=== PATIENT | female | born 1955 | race Caucasian/White ===

== ENCOUNTER 2021-11-14 14:56 | Emergency (ER) | payer OTHER, SELFPAY ==
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
[2021-11-14 15:10] VITALS: BP 161/62; BP 161/97; PULSE 62; PULSE 66; RESP 18; TEMP 37; O2SAT 98; O2SAT 99; BMI 37.9
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
[2021-11-14 17:25] VITALS: BP 139/59; PULSE 61; O2SAT 99
== END 2021-11-14 19:17 | disposition home or self-care (01) ==
PROVIDERS: Emergency Provider Emergency Medicine; PCP Internal Medicine
DX: S16.1XXA Strain of muscle, fascia and tendon at neck level, initial encounter (principal); G44.309 Post-traumatic headache, unspecified, not intractable; M54.2 Cervicalgia; V43.52XA Car driver injured in collision with other type car in traffic accident, initial encounter; Y93.9 Activity, unspecified; Y92.410 Unspecified street and highway as the place of occurrence of the external cause; Y99.9 Unspecified external cause status; Z79.899 Other long term (current) drug therapy
CPT/HCPCS: 70450; 72125; 99284

== ENCOUNTER 2025-01-22 10:55 | Outpatient (REF) | payer MEDICARE, SELFPAY ==
--- NOTE | ~2025-01-22 | XR_ITS ---
EXAMINATION: Lumbar spine 4 views. CLINICAL INDICATION: Radiculopathy lumbar region. COMPARISON: Chest x-ray 07/11/2016: FINDINGS: There is normal lumbar lordosis. There is grade 1 anterolisthesis L4-L5. Rest of the vertebral alignment is normal. On flexion and extension views there is no significant change in the anterolisthesis L4 over L5. There is moderate ventral spondylosis throughout lumbar spine. The vertebral heights are maintained normal. No fracture, lytic lytic or sclerotic process seen. SI joints are symmetrical and normal. XR/XR lumbar spine 4V min IMPRESSION: Grade 1 anterolisthesis L4 over L5 with mild degenerative disc changes L4-5 disc level. There is moderate ventral spondylosis throughout lumbar spine. No visible acute fracture or lytic process seen. Electronically signed by: Familia Copeland MD 01/26/2025 07:30 AM EDT
--- OUTSIDE RECORDS SUMMARY | 2025-01-22 12:28 | XMS_ITS | Clinical Summary ---
Author Organization [address] Address [address] [place] [phone] Phone Care Team Providers Care Concrete Buster Operator Name Role Phone Cristina Martinez MD Primary Care Provider [phone] Allergies Active Allergy Reactions Criticality Noted Date [...] 019 Non-seasonal allergic rhinitis 07/30/2019 Morbid obesity ([facility] V24, [facility] V28) 2015 Plantar fasciitis 02/13/2012 Atopic dermatitis 11/30/2005 Migraine without aura 11/30/2005 Overview (11/08/2024): Hypertension 11/30/2005 Neutropenia ([facility] V24) 11/30/2005 Overview (07/27/2024): mild chronic Resolved Problems Problem Noted Date Diagnosed Date Resolved Date Lumbosacral spondylosis without myelopathy 02/17/2007 11/12/2024 Encounters Date Type Department Care Team Description 11/26/2024 5:30 PM EST - 11/26/2024 11:59 PM EST Hospital Encounter Radiology Department - [address] [phone] Spondylosis, unspecified Discharge Disposition: Home or Self Care 11/26/2024 2:00 PM EST - 11/26/2024 11:59 PM EST Hospital Encounter XRAY - [address] [phone] Radiculopathy, lumbar region; Spondylosis, unspecified Discharge Disposition: Home or Self Care 11/12/2024 9:45 AM EST Office Visit Adult Medicine South [address] [phone] Cristina Martinez MD Primary hypertension (Primary Dx); Subclinical hypothyroidism; Vitamin D deficiency; Lumbar spondylosis; Mild intermittent asthma without complication 11/04/2024 10:00 AM EST Office Visit Orthopedic Surgery - [place] [address] [phone] Mary Gates NP Primary osteoarthritis of left knee (Primary Dx); Radicular pain of left lower extremity 10/31/2024 11:51 PM EST - 11/01/2024 2:40 AM EST Emergency [facility] Emergency [address] [place] [phone] Left leg pain (Primary Dx) Discharge Disposition: Home or Self Care 10/30/2024 10:30 AM EST Office Visit Orthopedics [address] [phone] Flaco Francis PA Primary osteoarthritis of left [...] spondylosis with out myelopathy 02/17/2007 Morbid obesity ([facility] V24, [facility] V28) 12/05/2015 Chronic cough 07/30/2019 Osteopenia 02/02/202202/18 [...] 1:50 PM EDT Appointment Radiology Department - [address] [phone] 05/12/2025 9:45 AM EDT Office Visit Adult Medicine [address] [phone] Julianne Alexandra PA [address] [place] [phone] Health Maintenance Due Date Last Done Comments [...] 11/01/2024 2:10 AM EST Left leg pain NV ARTHROCENTESIS/ASPIRA TION/INJECTION MAJOR JOINT/BURSA W/O U/S GUIDANCE [...] Signed Date: 11/27/2024 16:06 ET Workstation ID: [id number] Transcribed By: Self Edit Transcribed Date: 11/27/2024 [...] is stenosis of the lateral recesses and [id number] foramina with possible compression of the L4 [...] Signed Date: 11/27/2024 16:06 ET Workstation ID: [id number] Transcribed By: Self Edit Transcribed Date: 11/27/2024 14:45 ET us Chidi SHANNON IMG MRI PROCEDURES Final Resul t * XR Lumbar Spine 4+ Views (11/26/2024 2:15 PM EST) Anatomical Region Laterality Modality Spine, L-spine Radiographic Elana ging 11/26/2024 10:5 4 PM EST Impressions 11/26/2024 10:58 PM EST Progressive degenerative changes. POS - [id number] -------- FINAL REPORT -------- Dictated By: Magaly Boles Dictated Date: 11/26/2024 22:54 ET Assigned Physician: Magaly Boles Reviewed and Electronically Signed By: Magaly Boles Signed Date: 11/26/2024 22:58 ET Workstation ID: [id number] Transcribed By: Self Edit Transcribed Date: 11/26/2024 [...] L5. IMPRESSION: Progressive degenerative changes. POS - [id number] -------- FINAL REPORT -------- Dictated By: Magaly Boles Dictated Date: 11/26/2024 22:54 ET Assigned Physician: Magaly Boles Reviewed and Electronically Signed By: Magaly Boles Signed Date: 11/26/2024 22:58 ET Workstation ID: [id number] Transcribed By: Self Edit Transcribed Date: 11/26/2024 22:54 ET Chidi SHANNON IMG XR PROCEDURES Final Result * Lipid panel with reflex to direct LDL (11/09/2024 10:45 AM EST) Cholesterol 154 0 - 200 mg/dL LAB CHEMISTRY METHOD 11/09/2024 3:59 PM EST [facility] Triglycerides 90 0 - 150 mg/dL LAB CHEMISTRY METHOD 11/09/2024 3:59 PM EST [facility] HDL 58 >=40 mg/dL LAB CHEMISTRY METHOD 11/09/2024 3:59 PM EST [facility] LDL Calculated 78 0 - 100 mg/dL LAB CHEMISTRY METHOD 11/09/2024 3:59 PM [facility] VLDL Cholesterol Luis Armando 18 mg/dL LAB CHEMISTRY METHOD 11/09/2024 3:59 PM [facility] Non HDL Chol. (LDL+VLDL) 96 <145 mg/dL LAB CHEMISTRY METHOD 11/09/2024 3:59 PM [facility] Chol/HDL Ratio 2.7 0.0 - 4.4 LAB CHEMISTRY METHOD 11/09/2024 3:59 PM [facility] Blood Venous blood specimen / Unknown Venipuncture / Unknown 11/09/2024 10:45 AM EST 11/09/2024 10:45 AM EST us Julianne SHANNON LAB BLOOD ORDERABLES Final Re sult [facility] [address] [place] [address], * CBC auto differential (11/09/2024 10:45 AM EST) WBC 5.9 4.8 - 10.8 K/[facility] LAB HEMETOLOGY METHOD 11/09/2024 12:07 PM [facility] RBC 4.30 3.80 - 4.80 M/[facility] LAB HEMETOLOGY METHOD 11/09/2024 12:07 PM [facility] Hemoglobin 13.0 11.5 - 16.0 g/dL LAB HEMETOLOGY METHOD 11/09/2024 12:07 PM [facility] Hematocrit 39.7 35.0 - 47.0 % LAB HEMETOLOGY METHOD 11/09/2024 12:07 PM [facility] MCV 91.9 79.0 - 98.0 FL LAB HEMETOLOGY METHOD 11/09/2024 12:07 PM [facility] MCH 30.1 27.0 - 32.0 pcg LAB HEMETOLOGY METHOD 11/09/2024 12:07 PM [facility] MCHC 32.7 32.0 - 37.0 g/dL LAB HEMETOLOGY METHOD 11/09/2024 12:07 PM [facility] RDW 13.2 11.0 - 15.0 % LAB HEMETOLOGY METHOD 11/09/2024 12:07 PM [facility] Platelets 262 130 - 400 K/mcL LAB HEMETOLOGY METHOD 11/09/2024 12:07 PM [facility] MPV 9.7 7.0 - 11.0 FL LAB HEMETOLOGY METHOD 11/09/2024 12:07 PM [facility] NRBC 0.0 <1.0 % LAB HEMETOLOGY METHOD 11/09/2024 12:07 PM [facility] NRBC Absolute 0.00 <0.10 K/mcL LAB HEMETOLOGY METHOD 11/09/2024 12:07 PM [facility] Neutrophils Relative 38.3 % LAB HEMETOLOGY METHOD 11/09/2024 12:07 PM [facility] Lymphocytes Relative 44.0 % LAB HEMETOLOGY METHOD 11/09/2024 12:07 PM [facility] Monocytes Relative 10.7 % LAB HEMETOLOGY METHOD 11/09/2024 12:07 PM [facility] Eosinophils Relative 5.9 % LAB HEMETOLOGY METHOD 11/09/2024 12:07 PM [facility] Basophils Relative 0.8 % LAB HEMETOLOGY METHOD 11/09/2024 12:07 PM [facility] Immature Granulocytes Relative 0.3 % LAB HEMETOLOGY METHOD 11/09/2024 12:07 PM [facility] Neutrophils Absolute 2.25 1.50 - 7.00 K/mcL LAB HEMETOLOGY METHOD 11/09/2024 12:07 PM EST [facility] Lymphocytes Absolute 2.59 1.00 - 5.00 K/[facility] LAB HEMETOLOGY METHOD 11/09/2024 12:07 PM EST [facility] Monocytes Absolute 0.63 0.20 - 1.00 K/[facility] LAB HEMETOLOGY METHOD 11/09/2024 12:07 PM EST [facility] Eosinophils Absolute 0.35 0.00 - 0.50 K/[facility] LAB HEMETOLOGY METHOD 11/09/2024 12:07 PM EST [facility] Basophils Absolute 0.05 0.00 - 0.20 K/[facility] LAB HEMETOLOGY METHOD 11/09/2024 12:07 PM [facility] Immature Granulocytes Absolute 0.02 0.00 - 0.03 K/[facility] LAB HEMETOLOGY METHOD 11/09/2024 12:07 PM [facility] Blood Venous blood specimen / Unknown Venipuncture / Unknown 11/09/2024 10:45 AM EST 11/09/2024 10:45 AM EST us Julianne SHANNON LAB BLOOD ORDERABLES Final Re sult [facility] [address] [place] [address], * Vitamin D 25 hydroxy (11/09/2024 10:45 AM EST) Vit D, 25-Hydroxy 40.9 30.0 - 80.0 ng/mL LAB CHEMISTRY METHOD 11/09/2024 4:03 PM EST [facility] Blood Venous blood specimen / Unknown Venipuncture / Unknown 11/09/2024 10:45 AM EST 11/09/2024 10:45 AM EST us Julianne SHANNON LAB BLOOD ORDERABLES Final Re sult [facility] [address] [place] [address], [place] [phone] * Thyroid stimulating hormone (11/09/2024 10:45 AM EST) [facility] TSH 2.72 0.40 - 4.00 mcIU/mL LAB CHEMISTRY METHOD 11/09/2024 4:04 PM [facility] Blood Venous blood specimen / Unknown Venipuncture / Unknown 11/09/2024 10:45 AM EST 11/09/2024 10:45 AM EST Julianne SHANNON LAB BLOOD ORDERABLES Final Re sult Performing Organization Address [facility]/State/ZIP Co de Phone Number [facility] [address] [place] [address], [place] [phone] * Comprehensive metabolic panel (11/09/2024 10:45 AM EST) [facility] Sodium 140 133 - 145 mmol/L LAB CHEMISTRY METHOD 11/09/2024 3:59 PM [facility] Potassium 4.1 3.5 - 5.5 mmol/L LAB CHEMISTRY METHOD 11/09/2024 3:59 PM [facility] Chloride 105 96 - 110 mmol/L LAB CHEMISTRY METHOD 11/09/2024 3:59 PM [facility] CO2 28 21 - 32 mmol/L LAB CHEMISTRY METHOD 11/09/2024 3:59 PM [facility] Anion Gap 7 3 - 11 LAB CHEMISTRY METHOD 11/09/2024 3:59 PM [facility] Glucose 95 70 - 100 mg/dL LAB CHEMISTRY METHOD 11/09/2024 3:59 PM [facility] BUN 16 5 - 25 mg/dL LAB CHEMISTRY METHOD 11/09/2024 3:59 PM [facility] Creatinine 0.88 0.50 - 1.10 mg/dL LAB CHEMISTRY METHOD 11/09/2024 3:59 PM [facility] eGFR 72 >=60 mL/min/1. 73m2 LAB CHEMISTRY METHOD 11/09/2024 3:59 PM [facility] Comment:Calculation based on the??Chronic Kidney Disease Epidemiology Collaboration (CKD-EPI) equation refit??without adjustment for race. BUN/Creatinine Ratio 18.2 LAB CHEMISTRY METHOD 11/09/2024 3:59 PM [facility] Calcium 9.6 8.5 - 10.5 mg/dL LAB CHEMISTRY METHOD 11/09/2024 3:59 PM [facility] AST (SGOT) 13 10 - 42 unit/L LAB CHEMISTRY METHOD 11/09/2024 3:59 PM [facility] ALT (SGPT) 22 10 - 60 unit/L LAB CHEMISTRY METHOD 11/09/2024 3:59 PM [facility] Alkaline Phosphatase 85 42 - 121 unit/L LAB CHEMISTRY METHOD 11/09/2024 3:59 PM [facility] Total Protein 7.0 6.0 - 8.0 g/dL LAB CHEMISTRY METHOD 11/09/2024 3:59 PM [facility] Albumin 3.8 3.2 - 5.0 g/dL LAB CHEMISTRY METHOD 11/09/2024 3:59 PM [facility] Total Bilirubin 0.6 0.0 - 1.4 mg/dL LAB CHEMISTRY METHOD 11/09/2024 3:59 PM [facility] Blood Venous blood specimen / Unknown Venipuncture / Unknown 11/09/2024 10:45 AM EST 11/09/2024 10:45 AM EST us Julianne SHANNON LAB BLOOD ORDERABLES Final Re sult [facility] [address] [place] [address], * Vascular US Duplex Lower Extremity Venous [...] Signed Date: 11/01/2024 08:42 ET Workstation ID: [id number] Transcribed By: Self Edit Transcribed Date: 11/01/2024 [...] Signed Date: 11/01/2024 08:42 ET Workstation ID: [id number] Transcribed By: Self Edit Transcribed Date: 11/01/2024 08:41 ET us Luke SHANNON CV VASCULAR PROCEDURES Fi nal Result * NV ARTHROCENTESIS/ASPIRATION/INJECTION MAJOR JOINT/BURSA W/O U/S GUIDANCE (10/30/2024 [...] Signed Date: 08/24/2024 18:24 ET Workstation ID: [id number] Transcribed By: Self Edit Transcribed Date: 08/24/2024 18:21 ET Narrative 08/24/2024 6:24 PM EST STUDY: ??DUAL ENERGY X-RAY ABSORPTIOMETRY / DXA REASON FOR EXAM: ?? Female, 69 years old ??Osteopenia, unspecified location TECHNIQUE: ?? Bone Mineral Density (BMD) measurements of the lumbar spine and left hip were obtained using [employer] Discovery W (S/N [id number]). ?? COMPARISON: February 02, 2022 ?? FINDINGS: [...] lumbar spineand left hip were obtained using [employer] Discovery W (S/N [id number]). COMPARISON: February 02, 2022 FINDINGS: L1-L4 BMD: [...] Signed Date: 08/24/2024 18:24 ET Workstation ID: [id number] Transcribed By: Self Edit Transcribed Date: 08/24/2024 18:21 ET us Cristina Martinez MD IMG DXA PROCEDURES Final Result * Falls Risk Assessment (03/05/2024) Falls Risk Assessment Abstracted Result [facility] Historical Provider HEALTH MAINTENANCE Final Result * Depression Screening (03/05/2024) HM Depression Screening Abstracted Result [facility] Historical Provider HEALTH MAINTENANCE Final Result * [...] Breast cancer risk category Low (<15%) Result [facility] Cristina Martinez MD IMG XR PROCEDURES Final Result * Colonoscopy (01/14/2018) Pathologist [facility] Colonoscopy No Interpretation , Abstracted Anatomical Region Laterality Modality Other [facility] Provider HEALTH MAINTENANCE Final Result * Cervical Cancer Screening: HPV (11/20/2017) [facility] Cervical Cancer Screening: HPV Negative, Abstracted [facility] Provider HEALTH MAINTENANCE Final Result * Hepatitis C Screening (04/01/2013) Pathologist [facility] Hepatitis C Screening Abstracted [facility] Provider HEALTH MAINTENANCE Final Result from Last 3 Months or Most Recently Relevant to Health Maintenance Insurance MEDICARE HEALTH SAFETY NET [place]ICAID - [place] Advance Directives Documents on File Type Date Recorded Patient Trimmer Press Clippings Expl anation Health Care Decision (hx) 01/14/2014 [...] (hx) 12/29/2013 AD WOO DIRECTIVE Care Teams Concrete Buster Operator Relationship Specialty Start Date End Date Cristina Martinez MD [address] [place] [address] PCP - General 09/30/1991
--- OUTSIDE RECORDS SUMMARY | 2025-01-22 12:28 | XMS_ITS | Encounter Summary ---
Author Organization [facility] Address [address] [place] [address] Care Team Providers Care Pulley Maintainer Name Role Phone Cristina Martinez MD Primary Care Provider Encounter Details Date Type Department Care Team (Late Contact Info) Description 06/30/2024 12:00 PM EDT Hospital Encounter TH HISTORIC ENCOUNTERS EASTERN CONVERSION ONLY Julianne Alexandra PA [address] [place] [address] Social History Tobacco Use Types Packs/Day Years [...] 02/16/2025 1:50 PM EDT Appointment Radiology Department [address] [phone] 05/12/2025 9:45 AM EDT Office Visit Adult Medicine [address] [phone] Julianne Alexandra PA [address] [place] [address] documented as of this encounter Visit Diagnoses Not on filedocumented in this encounter Care Teams Pulley Maintainer Relationship Specialty Start Date End Date Cristina Martinez MD [address] [place] [address] PCP - General 09/30/1991 documented as of this encounter
== END 2025-01-22 10:56 | disposition home or self-care (01) ==
LOC: HO.HOSX 10:55
PROVIDERS: PCP Internal Medicine; Referring Provider Physician Assistant; Visit Provider Physician Assistant
DX: M54.16 Radiculopathy, lumbar region (principal); G89.29 Other chronic pain
CPT/HCPCS: 72110; 99202

== ENCOUNTER 2025-01-22 10:55 | Outpatient (AMB) | payer MEDICARE, SELFPAY ==
--- NOTE | 2025-01-22 11:00 | A.SPINEOV_ITS ---
Vital Signs 01/22/25 11:04 Height 5 ft 4 in Weight 220 lb BMI 37.8 Intake Visit Reasons: LBP Intake Note: Ms. Beard is here today c/o Low back pain. 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 She is a very nice 69-year-old female who has had on and off back issues including back pain most of her life, recently worse after a fall a couple of years ago, who began experiencing intense left L5 radiculopathy radiating down from the left side of her low back into her posterolateral thigh, calf into the top of her foot last year. The symptoms progressed to where they were almost unmanageable. She was using a shopping cart to get around. Getting in and out of bed was very uncomfortable. She was in quite a bit of pain and underwent physical therapy and unfortunately that did not help. She did try some chiropractic treatments in the last year as well but that only seemed to make things more aggravated. She takes Aleve to help with the pain. She underwent a cortisone injection in your office at L5-S1 in November and that gave her significant relief. The pain is not completely gone but for the most part it has made it quite a bit better. She is following up with us today with MRI done at [place] showing lumbar spondylolisthesis at L4-5 with lateral recess stenosis. PMH: She is reasonably healthy, history of hypertension, asthma and hypothyroidism. No history of cardiac disease, diabetes, strokes, pulmonary, liver, kidneys, cancer, blood clots, major abdominal surgery etc. Social hx: She does not smoke, drink use any recreational drugs Medications: Metoprolol, Allergies: High dose naproxen gave her gastritis, prednisone gave her elevated blood pressure, also allergic to sulfa gives her nausea Physical exam: Strength, gait, reflexes are all normal Imaging review: Lumbar MRI done at [place] shows a degenerative subtle anterior listhesis at L4-5 with some mild crowding of the lateral recess at this level Impression: 69-year-old female presents with chronic low back pain on and off through the years, last year developed a severe left L5 radiculopathy which responded beautifully to an injection done at L5-S1 epidural. She currently has had quite a bit of pain relief from the injection so I am going to let this sit for awhile and see if she gets enough relief that she does not need to undergo surgery. She does have what looks like a degenerative listhesis at L4-5 and some mild lateral recess narrowing at this level. I will send her for flexion- extension x-rays to rule out occult instability. Unless that shows something very concerning, I think Dr. Lopez would consider a left L4-5 decompression if the pain comes back given the localized response to the injection and the subjective description of the symptoms in the setting of the MRI. Since she is doing so well right now I will just see her back in 6 weeks and re-evaluate. Thank you for allowing us to care for your patient. The total time spent with this visit with this patient was 45 minutes reviewing history, physical exam, lumbar imaging review, and implementation of treatment plan or further diagnostic testing Sundar Lopez MD,PhD [facility] Orders: Orders XR lumbar spine 4V min Today M54.16 - Radiculopathy, lumbar region Coding Level of Care Code New Pt Level 4 (72669) Diagnoses Lumbar radiculopathy M54.16
[2025-01-22 11:04] VITALS: BMI 37.8
--- OUTSIDE RECORDS SUMMARY | 2025-01-22 11:41 | XMS_ITS | Clinical Summary ---
Author Organization [address] Address [address] [place] [phone] Phone Care Team Providers Care Plan Nurse Name Role Phone Cristina Martinez MD Primary Care Provider [phone] Allergies Active Allergy Reactions Criticality Noted Date Comments Prednisone 05/08/2024 Sulfa (Sulfonamide Antibiotics) 06/25/2011 Chills, lightheaded Medications albuterol HFA (Ventolin HFA) 90 mcg/actuation inhaler Inhale 2 puffs by mouth every 4 (four) hours if needed for wheezing or shortness of breath. 1 each 4 Active cholecalciferol (VITAMIN D-3) 50 mcg (2,000 unit) capsule Take 1 capsule (2,000 Units total) by mouth 1 (one) time each day. 90 capsule 1 4 Active enalapril (VASOTEC) 10 mg tablet Take 1 tablet (10 mg total) by mouth at bedtime. 90 tablet 1 4 Active fluticasone HFA (FLOVENT HFA) 110 mcg/actuation inhaler Inhale 1 puff by mouth 2 (two) times a day. Rinse mouth with water after use 3 each 1 4 Active hydroCHLOROthia zide (HYDRODIURIL) 25 mg tablet Take 1 tablet (25 mg total) by mouth at bedtime. 90 tablet 1 4 Active loratadine (CLARITIN) 10 mg tablet Take 1 tablet (10 mg total) by mouth 1 (one) time each day. 90 tablet 1 4 Active metoprolol succinate (TOPROL-XL) 25 mg 24 hr tablet Take 1 tablet (25 mg total) by mouth 1 (one) time each day. Do not crush or chew. 90 tablet 1 4 Active diclofenac (VOLTAREN) 1 % topical gel Apply 1 g topically 3 (three) times a day. 30 g 2 5 Active methocarbamoL (ROBAXIN) 750 mg tablet Take 2 tablets (1,500 mg total) by mouth 4 (four) times a day if needed for muscle spasms for up to 10 days. 40 each 5 Active Active Problems Problem Noted Date Diagnosed Date Class 2 obesity 11/03/2024 Irritant contact dermatitis due to cosmetics Vitamin D deficiency 12/07/2022 Subclinical hypothyroidism 06/08/2022 Obstructive sleep apnea 02/14/2022 Overview (11/08/2024): Patient has mild sleep apnea. I offer CPAP machine but she does not want to use it Osteopenia 02/02/2022 Overview (07/27/2024): 02/18 T score spine +1.1 hip -1.2 FRAX score 6.8% 10 year fracture risk COVID-19 09/22/2020 Mild intermittent asthma 12/23/2019 Overview (07/27/2024): Positive methacholine challenge 11/23/19 Lumbar spondylosis 08/26/2019 Varicose veins of both lower extremities 019 Non-seasonal allergic rhinitis 07/30/2019 Morbid obesity ([facility] V24, [facility] V28) 2015 Plantar fasciitis 02/13/2012 Atopic dermatitis 11/30/2005 Migraine without aura 11/30/2005 Overview (11/08/2024): Hypertension 11/30/2005 Neutropenia ([facility] V24) 11/30/2005 Overview (07/27/2024): mild chronic Resolved Problems Problem Noted Date Diagnosed Date Resolved Date Lumbosacral spondylosis without myelopathy 02/17/2007 11/12/2024 Encounters Date Type Department Care Team Description 11/26/2024 5:30 PM EST - 11/26/2024 11:59 PM EST Hospital Encounter Radiology Department - [address] [phone] Spondylosis, unspecified Discharge Disposition: Home or Self Care 11/26/2024 2:00 PM EST - 11/26/2024 11:59 PM EST Hospital Encounter XRAY - [address] [phone] Radiculopathy, lumbar region; Spondylosis, unspecified Discharge Disposition: Home or Self Care 11/12/2024 9:45 AM EST Office Visit [facility] [address] [phone] Cristina Martinez MD Primary hypertension (Primary Dx); Subclinical hypothyroidism; Vitamin D deficiency; Lumbar spondylosis; Mild intermittent asthma without complication 11/04/2024 10:00 AM EST Office Visit Orthopedic Surgery - [place] [address] [phone] Mary Gates NP Primary osteoarthritis of left knee (Primary Dx); Radicular pain of left lower extremity 10/31/2024 11:51 PM EST - 11/01/2024 2:40 AM EST Emergency [facility] Emergency [address] [place] [phone] Left leg pain (Primary Dx) Discharge Disposition: Home or Self Care 10/30/2024 10:30 AM EST Office Visit Orthopedics [address] [phone] Flaco Francis PA Primary osteoarthritis of left knee (Primary Dx) from Last 3 Months Immunizations Name Administration Dates Next Due Influenza Quadravalent, MDCK , 0.5ml, preservative free (Flucelvax) 6mo and older 06/20/2020,07/15/2019 Influenza trivalent, 0.5mL ( Fluad) 65yo and older 06/13/2023,06/08/2022,07/26/2021 Influenza trivalent, 0.5mL, preservative free (Fluarix; FluLaval; Fluzone) ages 6mo and older (Afluria) 3 years and older 06/08/2015,10/07/2013,08/31/2008,08/05,09/14/2006,09/18/2005 Moderna SARS-CoV-2 COVID-19, mRNA, LNP-S, preservative free 07/04/2022 Pfizer SARS-CoV-2 COVID-19, mRNA, LNP-S, preservative free 10/24/2021 Pneumococcal conjugate 13 va lent (Prevnar 13, PCV13) 2mo and older 12/06/2021 Pneumococcal polysaccharide 23 valent (Pneumovax 23) 2yo and older 12/07/2022 Td Tetanus diptheria (Tdvax) 7yo and older 10/16/2017,10/31/1997 Tdap Tetanus diptheria acell ular pertussis (Boostrix; Adacel) 7yo and older 09/29/2007 Surgical History Surgery Date Site/Laterality Comments TONSILLECTOMY COLONOSCOPY 02/2007 COLONOSCOPY 01/14/2018 negative SCREENING MAMMOGRAM 02/04/2024 Bilateral Medical History Medical History Date Comments Essential hypertension, benign 11/30/2005 D X:Essential hypertension, benign Migraine without aura, witho ut mention of intractable migraine without mention of status migrainosus 11/30/2005 Lumbosacral spondylosis with out myelopathy 02/17/2007 Morbid obesity ([facility] V24, [facility] V28) 12/05/2015 Chronic cough 07/30/2019 Osteopenia 02/02/202202/18 T score spi ne +1.1 hip -1.2 FRAX score 6.8% 10 year fracture risk Subclinical hypothyroidism 06/08/2022 Family History Medical History Relation Name Comments Other: pinholes in retina Brother ca ncer of the tonsil CABG Father Heart attack Maternal Grandfather Hypertension Mother pinholes in ret reginald Other: lupus Sister Breast cancer Neg Hx Prostate cancer Neg Hx Relation Name Status Comments Brother Father Maternal Grandfather Mother Sister Social History Tobacco Use Types Packs/Day Years Used Date Smoking Tobacco: Never Smokeless Tobacco: Never Tobacco Cessation:Counseling Given: Not Answered Alcohol Use Standard Drinks/Week Comments No 0 (1 standard drink = 0.6 oz pur e alcohol) Comments No Sex and Gender Information Value Date Recorded Sex Assigned at Female 11/01/2024 12:04 AM EST Legal Sex Female 1:56 PM EST Gender Identity Female 11/01/2024 12:04 AM EST Sexual Orientation Straight 11/01/2024 12 :04 AM EST Obstetrics History Last Filed Vital Signs Vital Sign Reading Time Taken Comments Blood Pressure 122/70 11/12/2024 9:51 AM EST Pulse 69 11/12/2024 9:51 AM EST Temperature 35.9 ??C (96.6 ??F) 11/12/2024 9:51 AM ES T Respiratory Rate 18 11/12/2024 9:51 AM EST Oxygen Saturation 95% 11/12/2024 9:51 AM EST Inhaled Oxygen Concentration - - Weight 103 kg (226 lb 3.2 oz) 11/12/2024 9:51 AM EST Height 162.6 cm (5' 4 ) 11/12/2024 9:51 AM EST Body Mass Index 38.83 11/12/2024 9:51 AM EST Plan of Treatment Upcoming Encounters Date Type Department Care Team (Late st Contact Info) Description 02/16/2025 1:50 PM EDT Appointment Radiology Department - [address] [phone] 05/12/2025 9:45 AM EDT Office Visit Adult Medicine [address] [phone] Julianne Alexandra PA [address] [place] [phone] Health Maintenance Due Date Last Done Comments Zoster Vaccines (1 of 2) 2006 RSV Immunization Adult Patients (1 - Risk 60-74 years 1-dose series) 2016 Medicare Annual Wellness Visit 09/08/2022 Social Influencers of Health Screening 09/08/2022 Cervical Cancer Screening: HPV 11/20/2022 11/20/2017 COVID-19 Vaccine ( season) 2024 07/04/2022, 10/24/2021, 01/09/2021, Additional history exists Depression Screening 03/05/2025 03/05/2024 Falls Risk Assessment 03/05/2025 03/05/2024 Influenza Vaccine (Season Ended) 2025 06/13/2023, 06/08/2022, 07/26/2021, Additional history exists Hypertension/CHF/CAD Annual BMP Blood Test 11/09/2025 11/09/2024, 05/08/2024, 05/08/2024 Breast Cancer Screening 02/03/2026 02/04/20 24, 02/04/2024, 12/13/2022, Additional history exists DTaP,Tdap,and Td Vaccines (4 - Td or Tdap) 10/16/2027 10/16/2017, 09/29/2007, 10/31/1997 Colorectal Cancer Screening: Colonoscopy 01/15/2028 01/14/2018 Cholesterol Screening (Lipid Panel) 11/09/2029 11/09/2024, 05/08/2024, 05/08/2024 Osteoporosis Screening (Bone Density Screening) 08/24/2034 08/24/2024, 02/02/2022 Hepatitis C Screening Completed 04/01/2013 Pneumococcal Vaccine: 50+ Years Completed 12/07/2022, 12/06/2021 HIB Vaccines Aged Out No longer eligi ble based on patient's age to complete this topic HPV Vaccines Aged Out No longer eligi ble based on patient's age to complete this topic Hepatitis A Vaccines Aged Out No long er eligible based on patient's age to complete this topic Hepatitis B Vaccines Aged Out No long er eligible based on patient's age to complete this topic IPV Vaccines Aged Out No longer eligi ble based on patient's age to complete this topic MMR Vaccines Aged Out No longer eligi ble based on patient's age to complete this topic Meningococcal ACWY Vaccine Aged Out N o longer eligible based on patient's age to complete this topic Meningococcal B Vaccine Aged Out No l onger eligible based on patient's age to complete this topic RSV Immunization Patients Under 20 months Aged Out No longer eligible based on patient's age to complete this topic Varicella Vaccines Aged Out No longer eligible based on patient's age to complete this topic Procedures Procedure Name Priority Date/Time Associated Diagnosis Comments MR LUMBAR SPINE WO CONTRAST Routine 11/26/2024 6:13 PM EST Spondylosis, unspecified XR LUMBAR SPINE 4+ VIEWS Routine 11/26/2024 2:15 PM EST Radiculopathy, lumbar region Spondylosis, unspecified CBC WITH AUTO DIFFERENTIAL Routine 11/09/2024 10:45 AM EST Osteopenia, unspecified location Vitamin D deficiency Primary hypertension Subclinical hypothyroidism Lipid screening LIPID PANEL WITH REFLEX TO DIRECT LDL Routine 11/09/2024 10:45 AM EST Osteopenia, unspecified location Vitamin D deficiency Primary hypertension Subclinical hypothyroidism Lipid screening COMPREHENSIVE METABOLIC PANEL Routine 11/09/2024 10:45 AM EST Osteopenia, unspecified location Vitamin D deficiency Primary hypertension Subclinical hypothyroidism Lipid screening CBC AND DIFFERENTIAL Routine 11/09/2024 10:45 AM EST Osteopenia, unspecified location Vitamin D deficiency Primary hypertension Subclinical hypothyroidism Lipid screening THYROID STIMULATING HORMONE Routine 11/09/2024 10:45 AM EST Subclinical hypothyroidism VITAMIN D 25 HYDROXY Routine 11/09/2024 10:45 AM EST Osteopenia, unspecified location Vitamin D deficiency VAS US DUPLEX LOWER EXT VENOUS LEFT STAT 11/01/2024 2:10 AM EST Left leg pain IL ARTHROCENTESIS/ASPIRA TION/INJECTION MAJOR JOINT/BURSA W/O U/S GUIDANCE Routine 10/30/2024 10:30 AM EST Primary osteoarthritis of left knee BD BONE DENSITY DXA AXIAL SKELETON Routine 08/24/2024 11:52 AM EST Other specified disorders of bone density and structure, unspecified site HM DEPRESSION SCREENING Routine 03/05/2024 HM FALLS RISK ASSESSMENT Routine 03/05/2024 SCREENING MAMMOGRAPHY BI 2-VIEW BREAST INC CAD Routine 02/04/2024 6:03 PM EDT Encounter for screening mammogram for malignant neoplasm of breast COLONOSCOPY Routine 01/14/2018 HPV Routine 11/20/2017 HEPATITIS C SCREENING Routine 04/01/2013 from Last 3 Months or Most Recently Relevant to Health Maintenance Results * MR Lumbar Spine wo Contrast (11/26/2024 6:13 PM EST) Anatomical Region Laterality Modality L-spine, Spine Magnetic Resonan ce 11/27/2024 2:45 PM EST Narrative 11/27/2024 4:06 PM EST MRI of the lumbosacral spine without intravenous contrast. History lumbar radiculopathy. Examination was performed on 1.5 Lesia magnet without administration of intravenous contrast. Study is somewhat limited due to motion artifact. No prior studies are available for comparison. Conus medullaris terminates at T12-L1 level. Vertebral bodies are maintained in height. T12-L1 disc is decreased in T2 signal. There is diffuse bulging of the disc. There is no focal disc herniation spinal stenosis or nerve root compression. At L1-2 level there is minimal retrolisthesis of L1 over L2. Disc is decreased in T2 signal. There is diffuse bulging of the disc, more prominent to the left. There is mild hypertrophy of the facet joints. There is no focal disc herniation or spinal stenosis. There is narrowing of the left L1 neural foramen. There is ??possible compression of the left L1 nerve root. At L2-3 level disc is decreased in T2 signal. There is a tear of the annulus fibrosis on the left. There is diffuse bulging of the disc. There are hypertrophic changes in the facet joints. There is narrowing of the lateral recesses and ??L2 neural foramina. There is suggestion of compression of the L2 nerve roots bilaterally, right more than left. There is moderate spinal stenosis and clumping of the nerve roots within the spinal canal. At L3-4 level disc is decreased in T2 signal. There is diffuse bulging of the disc, hypertrophy of the facet joints, ligamentum flavum and some prominence of the posterior epidural fat, contributing to moderate spinal stenosis. There is narrowing of the lateral recesses and L3 neural foramina with effacement of the L3 nerve roots bilaterally. At L4-5 level there is minimal anterior displacement of L4 over L5. There is narrowing of the disc and decreased T2 signal within the disc. There is severe spinal stenosis due to discogenic degenerative changes, congenitally short pedicles, hypertrophy of the facet joints and ligamentum flavum. There is stenosis of the lateral recesses and ??L4 neural foramina with possible compression of the L4 nerve roots. At L5-S1 level disc is decreased in T2 signal. There is diffuse bulging of the disc with bilateral lateral protrusion. There is narrowing of the lateral recesses and L5 neural foramina. There are hypertrophic changes in the facet joints more prominent on the right. There is narrowing of the right lateral recess and right L5 neural foramen. There is compression of the right L5 nerve root. Perivertebral soft tissues are unremarkable. CONCLUSIONS: Multilevel bony and discs degenerative changes with severe spinal stenosis at L4-5 level, moderate spinal stenosis at L3-4 level, moderate spinal stenosis at L2-3 level. Narrowing of the lateral recesses and neural foramina at multiple levels, with possible compression of the left L1 nerve root, possible compression of the L2 nerve roots bilaterally more prominent on the right. Effacement of the L3 nerve roots bilaterally, possible compression of the L4 nerve roots bilaterally. Compression of the right L5 nerve root. Please see details in the report. -------- FINAL REPORT -------- Dictated By: Shari Gallardo Dictated Date: 11/27/2024 14:45 ET Assigned Physician: Shari Gallardo Reviewed and Electronically Signed By: Shari Gallardo Signed Date: 11/27/2024 16:06 ET Workstation ID: [id number] Transcribed By: Self Edit Transcribed Date: 11/27/2024 14:45 ET Procedure Note Shari Gallardo MD - 11/27/2024 MRI of the lumbosacral spine without intravenous contrast. History lumbar radiculopathy. Examination was performed on 1.5 Lesia magnet without administration ofintravenous contrast. Study is somewhat limited due to motion artifact. Noprior studies are available for comparison. Conus medullaris terminates at T12-L1 level. Vertebral bodies aremaintained in height. T12-L1 disc is decreased in T2 signal. There is diffuse bulging of thedisc. There is no focal disc herniation spinal stenosis or nerve rootcompression. At L1-2 level there is minimal retrolisthesis of L1 over L2. Disc isdecreased in T2 signal. There is diffuse bulging of the disc, moreprominent to the left. There is mild hypertrophy of the facet joints.There is no focal disc herniation or spinal stenosis. There is narrowingof the left L1 neural foramen. There is possible compression of the leftL1 nerve root. At L2-3 level disc is decreased in T2 signal. There is a tear of theannulus fibrosis on the left. There is diffuse bulging of the disc. Thereare hypertrophic changes in the facet joints. There is narrowing of thelateral recesses and L2 neural foramina. There is suggestion ofcompression of the L2 nerve roots bilaterally, right more than left. Thereis moderate spinal stenosis and clumping of the nerve roots within thespinal canal. At L3-4 level disc is decreased in T2 signal. There is diffuse bulging ofthe disc, hypertrophy of the facet joints, ligamentum flavum and someprominence of the posterior epidural fat, contributing to moderate spinalstenosis. There is narrowing of the lateral recesses and L3 neuralforamina with effacement of the L3 nerve roots bilaterally. At L4-5 level there is minimal anterior displacement of L4 over L5. Thereis narrowing of the disc and decreased T2 signal within the disc. There issevere spinal stenosis due to discogenic degenerative changes,congenitally short pedicles, hypertrophy of the facet joints andligamentum flavum. There is stenosis of the lateral recesses and [id number] foramina with possible compression of the L4 nerve roots. At L5-S1 level disc is decreased in T2 signal. There is diffuse bulging ofthe disc with bilateral lateral protrusion. There is narrowing of thelateral recesses and L5 neural foramina. There are hypertrophic changes inthe facet joints more prominent on the right. There is narrowing of theright lateral recess and right L5 neural foramen. There is compression ofthe right L5 nerve root. Perivertebral soft tissues are unremarkable. CONCLUSIONS: Multilevel bony and discs degenerative changes with severespinal stenosis at L4-5 level, moderate spinal stenosis at L3-4 level,moderate spinal stenosis at L2-3 level. Narrowing of the lateral recessesand neural foramina at multiple levels, with possible compression of theleft L1 nerve root, possible compression of the L2 nerve roots bilaterallymore prominent on the right. Effacement of the L3 nerve roots bilaterally,possible compression of the L4 nerve roots bilaterally. Compression of theright L5 nerve root. Please see details in the report. -------- FINAL REPORT -------- Dictated By: Shari Gallardo Dictated Date: 11/27/2024 14:45 ET Assigned Physician: Shari Gallardo Reviewed and Electronically Signed By: Shari Gallardo Signed Date: 11/27/2024 16:06 ET Workstation ID: [id number] Transcribed By: Self Edit Transcribed Date: 11/27/2024 14:45 ET us Chidi SHANNON IMG MRI PROCEDURES Final Resul t * XR Lumbar Spine 4+ Views (11/26/2024 2:15 PM EST) Anatomical Region Laterality Modality Spine, L-spine Radiographic Elana ging 11/26/2024 10:5 4 PM EST Impressions 11/26/2024 10:58 PM EST Progressive degenerative changes. POS - [id number] -------- FINAL REPORT -------- Dictated By: Magaly Boles Dictated Date: 11/26/2024 22:54 ET Assigned Physician: Magaly Boles Reviewed and Electronically Signed By: Magaly Boles Signed Date: 11/26/2024 22:58 ET Workstation ID: [id number] Transcribed By: Self Edit Transcribed Date: 11/26/2024 22:54 ET Narrative 11/26/2024 10:58 PM EST EXAM: Lumbar spine x-ray HISTORY: Low back pain. ??Lumbar radiculopathy. COMPARISON: 11/17/2018 FINDINGS: 4 views of the lumbar spine were performed. 5 lumbar type vertebral bodies. Vertebral body heights are maintained. ??Progressive moderate disc space narrowing at L4-5. ??Diffuse endplate osteophytes which are bridging and partially bridging at most levels. ??No evidence of spondylolysis. ??Progressive multilevel facet arthropathy, greater at the lower 2 levels. ??Minimal anterolisthesis of L4 on L5. Procedure Note Magaly Boles MD - 11/26/2024 EXAM: Lumbar spine x-ray HISTORY: Low back pain. Lumbar radiculopathy. COMPARISON: 11/17/2018 FINDINGS: 4 views of the lumbar spine were performed. 5 lumbar type vertebral bodies. Vertebral body heights are maintained.Progressive moderate disc space narrowing at L4-5. Diffuse endplateosteophytes which are bridging and partially bridging at most levels. Noevidence of spondylolysis. Progressive multilevel facet arthropathy,greater at the lower 2 levels. Minimal anterolisthesis of L4 on L5. IMPRESSION: Progressive degenerative changes. POS - [id number] -------- FINAL REPORT -------- Dictated By: Magaly Boles Dictated Date: 11/26/2024 22:54 ET Assigned Physician: Magaly Boles Reviewed and Electronically Signed By: Magaly Boles Signed Date: 11/26/2024 22:58 ET Workstation ID: [id number] Transcribed By: Self Edit Transcribed Date: 11/26/2024 22:54 ET Chidi SHANNON IMG XR PROCEDURES Final Result * Lipid panel with reflex to direct LDL (11/09/2024 10:45 AM EST) Cholesterol 154 0 - 200 mg/dL LAB CHEMISTRY METHOD 11/09/2024 3:59 PM EST [facility] Triglycerides 90 0 - 150 mg/dL LAB CHEMISTRY METHOD 11/09/2024 3:59 PM EST [facility] HDL 58 >=40 mg/dL LAB CHEMISTRY METHOD 11/09/2024 3:59 PM EST [facility] LDL Calculated 78 0 - 100 mg/dL LAB CHEMISTRY METHOD 11/09/2024 3:59 PM [facility] VLDL Cholesterol Luis Armando 18 mg/dL LAB CHEMISTRY METHOD 11/09/2024 3:59 PM [facility] Non HDL Chol. (LDL+VLDL) 96 <145 mg/dL LAB CHEMISTRY METHOD 11/09/2024 3:59 PM [facility] Chol/HDL Ratio 2.7 0.0 - 4.4 LAB CHEMISTRY METHOD 11/09/2024 3:59 PM [facility] Blood Venous blood specimen / Unknown Venipuncture / Unknown 11/09/2024 10:45 AM EST 11/09/2024 10:45 AM EST us Julianne SHANNON LAB BLOOD ORDERABLES Final Re sult [facility] [address] [place] [address], * CBC auto differential (11/09/2024 10:45 AM EST) WBC 5.9 4.8 - 10.8 K/[facility] HEMETOLOGY METHOD 11/09/2024 12:07 PM [facility] RBC 4.30 3.80 - 4.80 M/[facility] HEMETOLOGY METHOD 11/09/2024 12:07 PM [facility] Hemoglobin 13.0 11.5 - 16.0 g/dL LAB HEMETOLOGY METHOD 11/09/2024 12:07 PM [facility] Hematocrit 39.7 35.0 - 47.0 % LAB HEMETOLOGY METHOD 11/09/2024 12:07 PM [facility] MCV 91.9 79.0 - 98.0 FL LAB HEMETOLOGY METHOD 11/09/2024 12:07 PM [facility] MCH 30.1 27.0 - 32.0 pcg LAB HEMETOLOGY METHOD 11/09/2024 12:07 PM [facility] MCHC 32.7 32.0 - 37.0 g/dL LAB HEMETOLOGY METHOD 11/09/2024 12:07 PM [facility] RDW 13.2 11.0 - 15.0 % LAB HEMETOLOGY METHOD 11/09/2024 12:07 PM [facility] Platelets 262 130 - 400 K/mcL LAB HEMETOLOGY METHOD 11/09/2024 12:07 PM [facility] MPV 9.7 7.0 - 11.0 FL LAB HEMETOLOGY METHOD 11/09/2024 12:07 PM [facility] NRBC 0.0 <1.0 % LAB HEMETOLOGY METHOD 11/09/2024 12:07 PM [facility] NRBC Absolute 0.00 <0.10 K/mcL LAB HEMETOLOGY METHOD 11/09/2024 12:07 PM [facility] Neutrophils Relative 38.3 % LAB HEMETOLOGY METHOD 11/09/2024 12:07 PM [facility] Lymphocytes Relative 44.0 % LAB HEMETOLOGY METHOD 11/09/2024 12:07 PM [facility] Monocytes Relative 10.7 % LAB HEMETOLOGY METHOD 11/09/2024 12:07 PM [facility] Eosinophils Relative 5.9 % LAB HEMETOLOGY METHOD 11/09/2024 12:07 PM [facility] Basophils Relative 0.8 % LAB HEMETOLOGY METHOD 11/09/2024 12:07 PM [facility] Immature Granulocytes Relative 0.3 % LAB HEMETOLOGY METHOD 11/09/2024 12:07 PM [facility] Neutrophils Absolute 2.25 1.50 - 7.00 K/mcL LAB HEMETOLOGY METHOD 11/09/2024 12:07 PM EST [facility] Lymphocytes Absolute 2.59 1.00 - 5.00 K/[facility] HEMETOLOGY METHOD 11/09/2024 12:07 PM EST [facility] Monocytes Absolute 0.63 0.20 - 1.00 K/[facility] HEMETOLOGY METHOD 11/09/2024 12:07 PM EST [facility] Eosinophils Absolute 0.35 0.00 - 0.50 K/[facility] HEMETOLOGY METHOD 11/09/2024 12:07 PM EST [facility] Basophils Absolute 0.05 0.00 - 0.20 K/[facility] HEMETOLOGY METHOD 11/09/2024 12:07 PM [facility] Immature Granulocytes Absolute 0.02 0.00 - 0.03 K/[facility] HEMETOLOGY METHOD 11/09/2024 12:07 PM [facility] Blood Venous blood specimen / Unknown Venipuncture / Unknown 11/09/2024 10:45 AM EST 11/09/2024 10:45 AM EST us Julianne SHANNON LAB BLOOD ORDERABLES Final Re sult [facility] [address] [place] [address], * Vitamin D 25 hydroxy (11/09/2024 10:45 AM EST) Vit D, 25-Hydroxy 40.9 30.0 - 80.0 ng/mL LAB CHEMISTRY METHOD 11/09/2024 4:03 PM EST [facility] Blood Venous blood specimen / Unknown Venipuncture / Unknown 11/09/2024 10:45 AM EST 11/09/2024 10:45 AM EST us Julianne SHANNON LAB BLOOD ORDERABLES Final Re sult [facility] [address] [place] [address], [place] [phone] * Thyroid stimulating hormone (11/09/2024 10:45 AM EST) [facility] TSH 2.72 0.40 - 4.00 mcIU/mL LAB CHEMISTRY METHOD 11/09/2024 4:04 PM [facility] Blood Venous blood specimen / Unknown Venipuncture / Unknown 11/09/2024 10:45 AM EST 11/09/2024 10:45 AM EST Julianne SHANNON LAB BLOOD ORDERABLES Final Re sult Performing Organization Address [facility]/State/ZIP Co de Phone Number [facility] [address] [place] [address], [place] [phone] * Comprehensive metabolic panel (11/09/2024 10:45 AM EST) [facility] Sodium 140 133 - 145 mmol/L LAB CHEMISTRY METHOD 11/09/2024 3:59 PM [facility] Potassium 4.1 3.5 - 5.5 mmol/L LAB CHEMISTRY METHOD 11/09/2024 3:59 PM [facility] Chloride 105 96 - 110 mmol/L LAB CHEMISTRY METHOD 11/09/2024 3:59 PM [facility] CO2 28 21 - 32 mmol/L LAB CHEMISTRY METHOD 11/09/2024 3:59 PM [facility] Anion Gap 7 3 - 11 LAB CHEMISTRY METHOD 11/09/2024 3:59 PM [facility] Glucose 95 70 - 100 mg/dL LAB CHEMISTRY METHOD 11/09/2024 3:59 PM [facility] BUN 16 5 - 25 mg/dL LAB CHEMISTRY METHOD 11/09/2024 3:59 PM [facility] Creatinine 0.88 0.50 - 1.10 mg/dL LAB CHEMISTRY METHOD 11/09/2024 3:59 PM [facility] eGFR 72 >=60 mL/min/1. 73m2 LAB CHEMISTRY METHOD 11/09/2024 3:59 PM [facility] Comment:Calculation based on the??Chronic Kidney Disease Epidemiology Collaboration (CKD-EPI) equation refit??without adjustment for race. BUN/Creatinine Ratio 18.2 LAB CHEMISTRY METHOD 11/09/2024 3:59 PM [facility] Calcium 9.6 8.5 - 10.5 mg/dL LAB CHEMISTRY METHOD 11/09/2024 3:59 PM [facility] AST (SGOT) 13 10 - 42 unit/L LAB CHEMISTRY METHOD 11/09/2024 3:59 PM [facility] ALT (SGPT) 22 10 - 60 unit/L LAB CHEMISTRY METHOD 11/09/2024 3:59 PM [facility] Alkaline Phosphatase 85 42 - 121 unit/L LAB CHEMISTRY METHOD 11/09/2024 3:59 PM [facility] Total Protein 7.0 6.0 - 8.0 g/dL LAB CHEMISTRY METHOD 11/09/2024 3:59 PM [facility] Albumin 3.8 3.2 - 5.0 g/dL LAB CHEMISTRY METHOD 11/09/2024 3:59 PM [facility] Total Bilirubin 0.6 0.0 - 1.4 mg/dL LAB CHEMISTRY METHOD 11/09/2024 3:59 PM [facility] Blood Venous blood specimen / Unknown Venipuncture / Unknown 11/09/2024 10:45 AM EST 11/09/2024 10:45 AM EST us Julianne SHANNON LAB BLOOD ORDERABLES Final Re sult [facility] [address] [place] [address], * Vascular US Duplex Lower Extremity Venous Left (11/01/2024 2:10 AM EST) Anatomical Region Laterality Modality Vascular, Abdomen Ultrasound 11/01/2024 8:41 AM EST Impressions 11/01/2024 8:42 AM EST No evidence of a left lower extremity deep venous thrombosis. -------- FINAL REPORT -------- Dictated By: Denny Pugh Dictated Date: 11/01/2024 08:41 ET Assigned Physician: Denny Pugh Reviewed and Electronically Signed By: Denny Pugh Signed Date: 11/01/2024 08:42 ET Workstation ID: [id number] Transcribed By: Self Edit Transcribed Date: 11/01/2024 08:41 ET Narrative 11/01/2024 8:42 AM EST Left lower extremity deep vein thrombosis study, 11/01/2024. HISTORY: leg pain. COMPARISON: None. TECHNIQUE: Grayscale, color Doppler, and spectral Doppler ultrasound evaluation of the deep venous structures of the left lower extremity. ??Augmentation and compression maneuvers were performed. FINDINGS: The deep venous structures of the left lower extremity demonstrate normal compressibility with normal color and spectral Doppler flow and a normal response to augmentation maneuvers. Procedure Note Denny Pugh MD - 11/01/2024 Left lower extremity deep vein thrombosis study, 11/01/2024. HISTORY: leg pain. COMPARISON: None. TECHNIQUE: Grayscale, color Doppler, and spectral Doppler ultrasoundevaluation of the deep venous structures of the left lower extremity.Augmentation and compression maneuvers were performed. FINDINGS: The deep venous structures of the left lower extremity demonstrate normalcompressibility with normal color and spectral Doppler flow and a normalresponse to augmentation maneuvers. IMPRESSION: No evidence of a left lower extremity deep venous thrombosis. -------- FINAL REPORT -------- Dictated By: Denny Pugh Dictated Date: 11/01/2024 08:41 ET Assigned Physician: Denny Pugh Reviewed and Electronically Signed By: Denny Pugh Signed Date: 11/01/2024 08:42 ET Workstation ID: [id number] Transcribed By: Self Edit Transcribed Date: 11/01/2024 08:41 ET us Luke SHANNON CV VASCULAR PROCEDURES Fi nal Result * IL ARTHROCENTESIS/ASPIRATION/INJECTION MAJOR JOINT/BURSA W/O U/S GUIDANCE (10/30/2024 10:30 AM EST) Narrative Gallito Garcia MD - 10/30/2024 10:30 AM EST SHIVA Sherman ? 10/30/2024 10:59 AM L Inj/Asp: L knee Indications: pain Details: 22 G needle, anterolateral approach Medications: 4 mL lidocaine 1 %; 80 mg methylPREDNISolone acetate 80 mg/mL Informed Consent: ??Site: ??Knee ??Laterality: ??Left ??Relevant images/test results available and reviewed: yes ?Health status cleared: ??Yes ??Procedure/treatment, purpose, treatment alternatives, risks/potential complications and benefits explained: yes ?Risk/complications/benefits details: ??Risks include but are not limited to: The treatment may not accomplish the desired results. ??Additionally bleeding, infection, damage to tendon, nerve, cartilage, muscle; thinning or lightening of the skin in the area of injection; flushing or redness of the face, elevated blood pressure or blood sugar, allergic reaction, rash, increased pain Benefits include relief of inflammation and pain ??Patient questions answered: yes ?Patient agrees, verbalizes understanding, and wants to proceed: yes ?Consent given by: ??Patient ??Informed consent discussion completed by Physician/MEG with patient: ?? Verbal ??Pre-procedure timeout performed: yes ?? us Flaco SHANNON IN CLINIC/BEDSIDE ORDERABLES Fin al Result * BD Bone Density DXA Axial Skeleton (08/24/2024 11:52 AM EST) Anatomical Region Laterality Modality Wrist, Hip, L-spine Bone Densito metry 08/24/2024 6:21 PM EST Impressions 08/24/2024 6:24 PM EST Normal bone density Reference Information: The T-score is the number of standard deviations above or below the standard which is normal for young adults at their peak bone mineral density. The World Health Organization (WHO) interprets the T-scores as follows: At or above ??-1 SD ?Normal bone density Between -1 and -2.5 SD ??Osteopenia At or below -2.5 SD ?Osteoporosis -------- FINAL REPORT -------- Dictated By: Ifeoma Brandon Dictated Date: 08/24/2024 18:21 ET Assigned Physician: Ifeoma Brandon Reviewed and Electronically Signed By: Ifeoma Brandon Signed Date: 08/24/2024 18:24 ET Workstation ID: [id number] Transcribed By: Self Edit Transcribed Date: 08/24/2024 18:21 ET Narrative 08/24/2024 6:24 PM EST STUDY: ??DUAL ENERGY X-RAY ABSORPTIOMETRY / DXA REASON FOR EXAM: ?? Female, 69 years old ??Osteopenia, unspecified location TECHNIQUE: ?? Bone Mineral Density (BMD) measurements of the lumbar spine and left hip were obtained using [employer] Discovery W (S/N [id number]). ?? COMPARISON: February 02, 2022 ?? FINDINGS: L1-L4 BMD: 1.223 g/cm2 L1-L4 T score: 1.6. ??This corresponds to Normal bone density. This represents a 5.1* % increase in bone density compared with prior exam from February 02, 2022. Left femoral neck BMD: 0.762 g/cm2 Left femoral neck T score: -0.8. ??This corresponds to Normal bone density. Left total hip BMD: 0.915 g/cm2 Left total hip T score: -0.2. ??This corresponds to Normal bone density. This represents a 7.6* % increase in bone density compared with prior exam from February 02, 2022. * - Indicates a statistically significant change. Procedure Note Ifeoma Brandon MD - 08/24/2024 STUDY: DUAL ENERGY X-RAY ABSORPTIOMETRY / DXA REASON FOR EXAM: Female, 69 years old Osteopenia, unspecifiedlocation TECHNIQUE: Bone Mineral Density (BMD) measurements of the lumbar spineand left hip were obtained using [employer] Discovery W (S/N [id number]). COMPARISON: February 02, 2022 FINDINGS: L1-L4 BMD: 1.223 g/cm2 L1-L4 T score: 1.6. This corresponds to Normal bone density. This represents a 5.1* % increase in bone density compared with prior examfrom February 02, 2022. Left femoral neck BMD: 0.762 g/cm2 Left femoral neck T score: -0.8. This corresponds to Normal bonedensity. Left total hip BMD: 0.915 g/cm2 Left total hip T score: -0.2. This corresponds to Normal bone density. This represents a 7.6* % increase in bone density compared with prior examfrom February 02, 2022. * - Indicates a statistically significant change. IMPRESSION: Normal bone density Reference Information: The T-score is the number of standard deviations above or below thestandard which is normal for young adults at their peak bone mineraldensity. The World Health Organization (WHO) interprets the T-scores asfollows: At or above -1 SD Normal bone density Between -1 and -2.5 SD Osteopenia At or below -2.5 SD Osteoporosis -------- FINAL REPORT -------- Dictated By: Ifeoma Brandon Dictated Date: 08/24/2024 18:21 ET Assigned Physician: Ifeoma Brandon Reviewed and Electronically Signed By: Ifeoma Brandon Signed Date: 08/24/2024 18:24 ET Workstation ID: [id number] Transcribed By: Self Edit Transcribed Date: 08/24/2024 18:21 ET us Cristina Martinez MD IMG DXA PROCEDURES Final Result * Falls Risk Assessment (03/05/2024) Falls Risk Assessment Abstracted Result [facility] Historical Provider HEALTH MAINTENANCE Final Result * Depression Screening (03/05/2024) HM Depression Screening Abstracted Result [facility] Historical Provider HEALTH MAINTENANCE Final Result * SCREENING MAMMOGRAPHY BI 2-VIEW BREAST INC CAD (02/04/2024 6:03 PM EDT) Anatomical Region Laterality Modality Radiographic Elana ging 12/13/2022 11:0 0 AM EDT Narrative 02/05/2024 9:14 AM EDT This is a summary report. The complete report is available in the patient's medical record. If you cannot access the medical record, please contact the sending organization for a detailed fax or copy. Full field digital screening tomosynthesis mammography, reviewed with CAD and compared to previous. The breasts are composed of fatty and fibroglandular tissue. ??No suspicious mass, architectural distortion or suspicious calcifications are identified. IMPRESSION: : No mammographic evidence of malignancy. BIRADS 1-Negative; N. 5 year breast cancer risk assessment 0.8 % Lifetime breast cancer risk assessment 2.9 % Breast cancer risk category Low (<15%) Procedure Note Jay Jay Kumar MD - 05/18/2024 This is a summary report. The complete report is available in thepatient's medical record. If you cannot access the medical record, pleasecontact the sending organization for a detailed fax or copy. Full field digital screening tomosynthesis mammography, reviewed with CADand compared to previous. The breasts are composed of fatty andfibroglandular tissue. No suspicious mass, architectural distortion orsuspicious calcifications are identified. IMPRESSION: : No mammographic evidence of malignancy. BIRADS 1-Negative; N. 5 year breast cancer risk assessment 0.8 % Lifetime breast cancer risk assessment 2.9 % Breast cancer risk category Low (<15%) Result [facility] Cristina Martinez MD IMG XR PROCEDURES Final Result * Colonoscopy (01/14/2018) Pathologist [facility] Colonoscopy No Interpretation , Abstracted Anatomical Region Laterality Modality Other [facility] Provider HEALTH MAINTENANCE Final Result * Cervical Cancer Screening: HPV (11/20/2017) [facility] Cervical Cancer Screening: HPV Negative, Abstracted [facility] Provider HEALTH MAINTENANCE Final Result * Hepatitis C Screening (04/01/2013) Pathologist [facility] Hepatitis C Screening Abstracted [facility] Provider HEALTH MAINTENANCE Final Result from Last 3 Months or Most Recently Relevant to Health Maintenance Insurance MEDICARE HEALTH SAFETY NET [place]ICAID - [place] Advance Directives Documents on File Type Date Recorded Patient Zinc Plater Expl anation Health Care Decision (hx) 01/14/2014 AD WOO DIRECTIVE Health Care Decision (hx) 01/14/2014 AD WOO DIRECTIVE Health Care Decision (hx) 01/14/2014 AD WOO DIRECTIVE Health Care Decision (hx) 01/14/2014 AD WOO DIRECTIVE Health Care Decision (hx) 01/14/2014 AD WOO DIRECTIVE Health Care Decision (hx) 12/29/2013 AD WOO DIRECTIVE Health Care Decision (hx) 12/29/2013 AD WOO DIRECTIVE Health Care Decision (hx) 12/29/2013 AD WOO DIRECTIVE Health Care Decision (hx) 12/29/2013 AD WOO DIRECTIVE Health Care Decision (hx) 12/29/2013 AD WOO DIRECTIVE Care Teams Plan Nurse Relationship Specialty Start Date End Date Cristina Martinez MD [address] [place] [address] PCP - General [birth year]30/1991
--- OUTSIDE RECORDS SUMMARY | 2025-01-22 11:41 | XMS_ITS | Patient Health Record ---
Author Organization [facility] [place] [address] Care Team Providers Care Buzzsaw Operator Name Role Phone Cristina Martinez Primary Care Provider Unavailabl e Allergies Allergen (clinical drug ingredient) Drug/Non Drug Allergy documented on EMR Reaction Allergy Type Onset Date Status Substance with sulfonamide structure and antibacterial mechanism of action (substance) Sulfa Antibiotics Unknown Drug Allergy Active Reason For Referral No Information Medications Medication SIG (Take, Route, Frequency, Duration) Notes Start Date End Date Status Enalapril Maleate 10 MG 1 tablet Orally Once a day Active ProAir HFA 108 (90 Base) MCG/ACT 1 puff as needed Inhalation every 4 hrs Active Flovent HFA 110 MCG/ACT 2 puffs Inhalati on Twice a day Active Multi Complete - as directed Orally Active Loratadine 10 MG 1 tablet Orally Once a day Active Montelukast Sodium 10 MG 1 tablet Orally Once a day Active Metoprolol Succinate ER 25 MG 1 tablet O rally Once a day Active Calcium 500 MG 1 tablet with meals Orally Twice a day Active Aleve 220 MG 1 tablet with food o r milk as needed Orally every 12 hrs Active hydroCHLOROthiazide 25 MG 1 tablet in th e morning Orally Once a day Active Immunizations Vaccine Route Administration Date Status Comme nts COVID-19, mRNA, LNP-S, bival ent booster, PF, 30 mcg/0.3 mL Unknown 07/04/2022 Administered Fluzone High-Dose Unknown 07/26/2021 Administered Influenza, high dose seasonal Unknown 06/08/2022 Admini stered Pfizer-BioNTech COVID-19 Vaccine IM Unknown 12/19/2020 Administered Pfizer-BioNTech COVID-19 Vaccine IM Unknown 01/09/2021 Administered Pfizer-BioNTech COVID-19 Vaccine IM Unknown 10/24/2021 Administered PNEUMOCOCCAL VAC (Prevnar 13), PFS Unknown 12/06/2021 A dministered Td Vaccine, 7 Yrs or Older, SDV, IM Unknown 10/16/2017 Administered Problems Problem Type SNOMED Code ICD Code Onset Dates Problem Status W/U Status Risk Notes Problem 972578774 Morbid obesity (E66.01) Active confirmed Problem Vitamin D deficiency (39727248) Vitamin D deficiency (E55.9) Active confirmed Problem Sleep apnea (12518235) Sleep apnea (G47.30) Active confirmed Problem Osteopenia (802001753) Osteopenia (M85.80) Active confirmed Problem 760469108 Plantar fasciiti s (M72.2) Inactive confirmed Problem Obese class II (741462180380945) BMI 36.0-36.9,adult (Z68.36) Active confirmed Problem 373307413 Migraine without aura and without status migrainosus, not intractable (G43.009) Inactive confirmed Problem Hypothyroidism (40490324) Other specified hypothyroidism (E03.8) Active confirmed Problem 52263931 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) Active confirmed Problem 51957806 Wheeze (R06.2) Inactive confirmed Problem 649645528 Osteoarthritis o f spine with radiculopathy, lumbar region (M47.26) Active confirmed Problem 89052156 Primary hypertension (I10) Active confirmed Problem Adult health examination (228854404) Adult general medical exam (Z00.00) Active confirmed Problem 69882748 Atopic dermatitis, unspecified type (L20.9) Inactive confirmed Problem 656601705 Mild intermitten t asthma, unspecified whether complicated (J45.20) Active confirmed Problem 796174943 Neutropenia, unspecified type (D70.9) Inactive confirmed Problem 26953164 Non-seasonal allergic rhinitis, unspecified trigger (J30.89) Active confirmed Plan Of Treatment No Information Insurance Providers Payer Name Payer Address Payer Phone Subscriber Number Group Number Insured Name Patient Relationship to Insured Coverage Start Date Coverage End Date [facility] [employer] ([id number]) [id number] 10 [id number] Colon, Melodie Self - patient is the insured 2 3 [employer] [place] ([id number]) [address] 10 [id number] Melodie Beard Self - patient is the insured 2 2
--- OUTSIDE RECORDS SUMMARY | 2025-01-22 11:41 | XMS_ITS | Encounter Summary ---
Author Organization [facility] Address [address] [place] [address] Care Team Providers Care Compensation And Benefits Administrator Name Role Phone Cristina Martinez MD Primary Care Provider [phone] Encounter Details Date Type Department Care Team (Late Contact Info) Description 06/30/2024 12:00 PM EDT Hospital Encounter TH HISTORIC ENCOUNTERS [facility]AST[facility] CONVERSION ONLY Julianne Alexadnra PA [address] [place] [address] Social History Tobacco Use Types Packs/Day Years [...] Encounters Date Type Department Care Team (Late Contact Info) Description 02/16/2025 1:50 PM EDT Appointment Radiology Department [address] [address] 05/12/2025 9:45 AM EDT Office Visit Adult Medicine [address] [address] Julianne Alexandra PA [address] [place] [address] documented as of this encounter Visit Diagnoses Not on filedocumented in this encounter Care Teams Compensation And Benefits Administrator Relationship Specialty Start Date End Date Cristina Martinez MD [address] [place] [address] PCP - General 09/30/1990 documented as of this encounter
== END 2025-01-22 11:37 | disposition home or self-care (01) ==
LOC: HO.HNS 10:55
PROVIDERS: PCP Internal Medicine; Referring Provider Physician Assistant; Visit Provider Physician Assistant
DX: M54.16 Radiculopathy, lumbar region (principal)
CPT/HCPCS: 99204

== ENCOUNTER → 2025-01-22 11:37 | Outpatient (BNV) | payer MEDICARE, SELFPAY | PROVIDERS: PCP Internal Medicine; Referring Provider Physician Assistant; Visit Provider Radiology Diagnostic Radiology | DX: M47.816 Spondylosis without myelopathy or radiculopathy, lumbar region (principal) | CPT/HCPCS: 72110 ==

== ENCOUNTER 2025-03-05 11:31 | Outpatient (AMB) | payer MEDICARE, SELFPAY ==
--- NOTE | 2025-03-05 11:36 | HO.SPINEOV ---
Intake Visit Reasons: 6 weeks f/up Intake Note: Ms. Beard is here today for her 6 week F/u. Services Tech Required: No Allergies naproxen [NAPROXEN] Allergy (Severe, Verified 01/22/25 11:05) NAUSEA & VOMITING Sulfa (Sulfonamide Antibiotics) [SULFA (SULFONAMIDE ANTIBIOTICS)] Adverse Reaction (Severe, Verified 01/22/25 11:05) NAUSEA & VOMITING Assessment & Plan Assessment & Plan (1) Lumbar radiculopathy: Code(s): M54.16 - Radiculopathy, lumbar region Category: Medical Plan Mrs Beard is here in follow-up. She continues to have great relief of the leg pain from the injection, so I told her there is no indication for surgery. She will get intermittent flare-ups if she does too much but that is certainly reasonable given how things look in her spine. She can follow up with us on an as-needed basis. Total amount of time spent in this visit was 10 minutes in discussion of symptoms, lumbar imaging results and subsequent plan of care Sundar Lopez MD,PhD [facility] Coding Level of Care Code Est Pt Level 2 (02877) Diagnoses Lumbar radiculopathy M54.16
--- OUTSIDE RECORDS SUMMARY | 2025-03-05 12:16 | XMS_ITS | Patient Health Record ---
Author Organization [facility] [place] [address] Care Team Providers Care Call Worker Person Name Role Phone Cristina Martinez Primary Care [...] Problem Status W/U Status Risk Notes Problem 826230435 Morbid obesity (E66.01) Active confirmed Problem Vitamin D deficiency (77956179) Vitamin D deficiency (E55.9) Active confirmed Problem Sleep apnea (18523025) Sleep apnea (G47.30) Active confirmed Problem Osteopenia (879208764) Osteopenia (M85.80) Active confirmed Problem 704865935 Plantar fasciiti s (M72.2) Inactive confirmed Problem Obese class II (333763187116095) BMI 36.0-36.9,adult (Z68.36) Active confirmed Problem 316813427 Migraine without aura and without status migrainosus, not intractable (G43.009) Inactive confirmed Problem Hypothyroidism (03383173) Other specified hypothyroidism (E03.8) Active confirmed Problem 86958007 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) Active confirmed Problem 94746695 Wheeze (R06.2) Inactive confirmed Problem 706918900 Osteoarthritis o f spine with radiculopathy, lumbar region (M47.26) Active confirmed Problem 28681189 Primary hypertension (I10) Active confirmed Problem Adult health examination (254044548) Adult general medical exam (Z00.00) Active confirmed Problem 75880427 Atopic dermatitis, unspecified type (L20.9) Inactive confirmed Problem 861026498 Mild intermitten t asthma, unspecified whether complicated (J45.20) Active confirmed Problem 195419301 Neutropenia, unspecified type (D70.9) Inactive confirmed Problem 61351293 Non-seasonal allergic rhinitis, unspecified trigger (J30.89) Active confirmed Plan Of Treatment No Information Insurance Providers Payer Name Payer Address Payer Phone Subscriber Number Group Number Insured Name Patient Relationship to Insured Coverage Start Date Coverage End Date [facility] SCO ([id number]) [address] 10 [id number] Colon, Melodie Self - patient is the insured 2 3 [employer] [place] Deb[place] ([id number]) [address] 10 [id number] Melodie Beard Self - patient is the insured 2 2
== END 2025-03-05 11:47 | disposition home or self-care (01) ==
LOC: HO.HNS 11:32
PROVIDERS: PCP Internal Medicine; Visit Provider Physician Assistant
DX: M54.16 Radiculopathy, lumbar region (principal)
CPT/HCPCS: 99212

== ENCOUNTER → 2025-03-05 11:31 | Outpatient (BNVA) | payer MEDICARE, SELFPAY | PROVIDERS: PCP Internal Medicine; Visit Provider Physician Assistant | DX: M54.16 Radiculopathy, lumbar region (principal) | CPT/HCPCS: 99212 ==

== ENCOUNTER 2025-08-17 11:04 | Outpatient (AMB) | payer MEDICARE, SELFPAY ==
[2025-08-17 11:08] VITALS: BMI 37.4
--- NOTE | 2025-08-17 11:08 | A.PHYSOV ---
Vital Signs 08/17/25 11:08 Height 5 ft 4 in Weight 218 lb BMI 37.4 Intake Visit Reasons: Want back injections Intake Note: Patient is a 70 year old female in the office today to be evaluated for a back injection. Defective Cigarette Slitter Required: No Allergies naproxen (NAPROXEN) Allergy (Severe, Verified 08/17/25 11:09) NAUSEA & VOMITING prednisone Allergy (Unknown, Verified 08/17/25 11:09) Unknown Sulfa (Sulfonamide Antibiotics) (SULFA (SULFONAMIDE ANTIBIOTICS)) Adverse Reaction (Severe, Verified 08/17/25 11:09) NAUSEA & VOMITING HPI Comments Details: History of Present Illness The patient is a 70-year-old female presenting with chronic pain management. The patient reports that the last injection provided 60% relief for approximately six months, after which the pain returned. Currently, the pain is rated as a seven out of ten, with exacerbation noted last , requiring an injection in the knee. The patient describes numbness in the leg, particularly on the right side, with sensations of ants crawling and temperature changes. These symptoms began after the previous injection and have persisted. The patient was advised to consult a neurosurgeon, who determined that surgery was not necessary at this time. The patient is considering repeating the injection, which was previously effective. Patient has been performing her physician directed home exercise plan and using her medications as prescribed without relief of her symptoms. She finds that her symptoms limit her ability to perform her activities of daily living and she is requesting repeat L5-S1 KEIRY. Pain Description - Onset: Pain relief lasted six months after the last injection, with recurrence of symptoms thereafter. - Quality: Described as severe, rated seven out of ten currently. - Location: Primarily on the right side, with numbness and paresthesia. - Radiation: Pain wraps around to the front. - Exacerbating factors: Standing and walking increase discomfort. - Relieving factors: Previous injection provided significant relief. [facility] Surgical History (Updated 08/17/25 @ 11:11 by Viki Hampton MA) Hx of tonsillectomy Social History (Updated 08/17/25 @ 11:12 by Viki Hampton MA) Household Members: Spouse Alcohol intake: current Alcohol intake frequency: does not drink Patient Tobacco Use Status: Never used Tobacco Use of substances other than those prescribed or required for medical reasons: No Current occupational status: disabled Review of Systems Narrative Review of Systems - Neurological: Reports numbness and paresthesia in the right leg. Denies headaches or dizziness. - Musculoskeletal: Reports chronic pain, exacerbated by standing and walking. Physical Exam Exam Exam: Physical Exam Lumbar Spine: Examination of her lumbar spine, there is no visible swelling or deformity. She is tender to the right lower lumbar facets. She is otherwise nontender. Full range of motion of her lumbar spine. She does have facet loading. Special Tests: Lhermittes sign was negative Heel Toe walk is normal Left straight leg raise: Negative Right straight leg raise: Positive right Special tests Issa test is negative Ganslen's test is negative SI Joint compression test negative Luan test negative Piriformis stretch is negative Lower Extremities: Full range of motion bilateral lower extremities. No calf pain or edema. Neuro: Sensation: Intact to lower extremities bilaterally Strength L2 (Psoas): 5/5 on the left and 5/5 on the right. L3 (Quads): 5/5 on the left and 5/5 on the right. L4 (Ant tibialis): 5/5 on the left and 5/5 on the right. L5 (EHL) 5/5 on the left and 5/5 on the right. S1 (Gastroc): 5/5 on the left and 5/5 on the right. DTR L4: (Patellar) Left 1 Right 1 S1: (Achilles) Left 1 Right 1 Babinski Downgoing No pathologic clonus. No involuntary movement. Vital Signs: BMI result Body Mass Index 37.4 Assessment & Plan Assessment & Plan (1) Lumbar radiculopathy: Code(s): M54.16 - Radiculopathy, lumbar region Category: Medical (2) Spinal stenosis, lumbar region with neurogenic claudication: Code(s): M48.062 - Spinal stenosis, lumbar region with neurogenic claudication Category: Medical Plan Pain Management - Affect: Pain impacts daily activities and mood, causing significant discomfort. - Analgesia: Previous injection provided relief for six months; current pain level is seven out of ten. - Adverse Effects: No adverse effects from previous injection reported. - Activities of Daily Living: Pain interferes with standing and walking. - Aberrant Drug Related Behaviors: None reported. Plan Patient was informed and verbally consented to the use of an ambient scribe for clinic note documentation during this visit. 1. Spinal stenosis, lumbar radiculitis: Patient reports 60% reduction of her pain from L5-S1 KEIRY for over 6 months. Patient's pain had returned despite performing her physician directed home exercise plan and wheezing her medications as prescribed. Requesting repeat L5-S1 KEIRY which I ordered today. Will continue her home exercise plan and medications otherwise as prescribed. Coding Level of Care Code Tele Est Pt Level 3 (24543) Diagnoses Lumbar radiculopathy M54.16 Spinal stenosis, lumbar region with neurogenic claudication M48.062
== END 2025-08-17 11:40 | disposition home or self-care (01) ==
LOC: HO.HPHYS 11:05
PROVIDERS: PCP Internal Medicine; Visit Provider Physician Assistant
DX: M54.16 Radiculopathy, lumbar region (principal); M48.062 Spinal stenosis, lumbar region with neurogenic claudication
CPT/HCPCS: 99213

== ENCOUNTER → 2025-08-17 11:04 | Outpatient (BNVA) | payer MEDICARE, SELFPAY | PROVIDERS: PCP Internal Medicine; Visit Provider Physician Assistant | DX: M54.16 Radiculopathy, lumbar region (principal); M48.062 Spinal stenosis, lumbar region with neurogenic claudication | CPT/HCPCS: 99212 ==

== ENCOUNTER 2025-09-03 09:02 | Outpatient (REF) | payer MEDICARE, SELFPAY | END 2025-09-03 09:03 | disposition home or self-care (01) | LOC: HO.HPHYSR 09:02 | PROVIDERS: PCP Internal Medicine; Visit Provider Physical Medicine & Rehabilitation | DX: M54.16 Radiculopathy, lumbar region (principal) | CPT/HCPCS: 62323; J2003; J3301; Q9967 ==

== ENCOUNTER 2025-09-03 09:02 | Outpatient (AMB) | payer MEDICARE, SELFPAY ==
--- NOTE | 2025-09-03 09:05 | A.PHYSOV_ITS ---
Vital Signs 09/03/25 09:08 Height 5 ft 4 in Weight 218 lb BMI 37.4 BP 168/91 H Pulse 78 Temp 97.6 F Intake Visit Reasons: Lumbar Interlaminar Epidural Injection L5-S1 Intake Note: Patient is a 70 year old female in office today for a L5-S1 interlaminar epidural injection Allergies naproxen (NAPROXEN) Allergy (Severe, Verified 09/03/25 09:06) NAUSEA & VOMITING prednisone Allergy (Unknown, Verified 09/03/25 09:06) Unknown Sulfa (Sulfonamide Antibiotics) (SULFA (SULFONAMIDE ANTIBIOTICS)) Adverse Reaction (Severe, Verified 09/03/25 09:06) NAUSEA & VOMITING PFSH Surgical History Hx of tonsillectomy Social History Household Members: Spouse Alcohol intake: current Alcohol intake frequency: does not drink Patient Tobacco Use Status: Never used Tobacco Current occupational status: disabled Physical Exam Vital Signs: Last Vital Signs Temp 97.6 F 09/03/25 09:08 Pulse 78 09/03/25 09:08 BP 168/91 H 09/03/25 09:08 BMI result Body Mass Index 37.4 Office Procedures Procedure Details: Procedure performed: L5-S1 lumbar epidural steroid injection Preop diagnosis: Lumbar radiculitis Postop diagnosis: The same Anesthesia: Local After informed consent was obtained patient was brought into the procedure room and placed in the prone position on the procedure table. Skin over the lumbar sacral area was prepped and draped in usual sterile manner. L5-S1 interlaminar space was visualized utilizing fluoroscopy. After skin was anesthetized with 1% lidocaine solution, 3.5 in 20 gauge Toughy needle was introduced percutaneously and advanced toward the epidural space at the indicated level. Loss of resistance technique was utilized. Needle placement was verified utilizing 3 cc of Omnipaque contrast solution. Excellent epidural spread was visualized wit hout evidence of vascular uptake. Total volume of 8 cc containing 2 cc of 1% lidocaine, 40 mg of triamcinolone and normal saline solution were injected after negative aspiration for blood and cerebrospinal fluid. Radiation exposure was documented in the chart. Lumbar Interlaminar Epidural 18803- use with FL Gd order: Lumbar Interlaminar Epidural Steroid Injection 97769 Procedure code (CPT) selection complete Office Meds Kenalog 40 mg/mL suspension for injection Performing Provider: Nguyễn Brown DO Performing Location[facility] Administered by: Nguyễn Brown DO on 09/03/25 09:31 Dose Route Admin Location Dispensed Lot Number Expiration Date [facility] [employer] 40 mg epidural 1 mL [address]-9 [employer] Total Dispensed Waste 1 mL 0 % lidocaine (PF) 10 mg/mL (1 %) injection solution Performing Provider: Nguyễn Brown DO Performing Location: [facility] Administered by: Nguyễn Brown DO on 09/03/25 09:31 Dose Route Admin Location Dispensed Lot Number Expiration Date [facility] [employer] 50 mg epidural 5 mL [id number] [facility] Total Dispensed Waste 5 mL 0 % Omnipaque 300 300 mg iodine/mL intravenous solution Performing Provider: Nguyễn Brown DO [facility] Administered by: Nguyễn Brown DO on 09/03/25 09:31 Dose Route Admin Location Dispensed Lot Number Expiration Date [facility] [employer] 3 mL epidural 10 mL [id number] [employer] Total Dispensed Waste 10 mL 70 % Assessment & Plan Assessment & Plan (1) Lumbar radiculopathy: Code(s): M54.16 - Radiculopathy, lumbar region Category: Medical Plan: Procedure Plan Procedure Orders: Orders AMB Lumbar Interlaminar Epidural Steroid Injection Today M54.16 - Radiculopathy, lumbar region FL Gd L Spine Interlaminar Inj Today M54.16 - Radiculopathy, lumbar region Coding Level of Care Code Procedure Only Diagnoses Lumbar radiculopathy M54.16 CPT Codes Lumbar Interlaminar Epidural Steroid I - 97504 - Lumbar Interlaminar Epidural: Lumbar Interlaminar Epidural Steroid Injection 00264 ([id number])
[2025-09-03 09:08] VITALS: BP 168/91; PULSE 78; TEMP 36.4; BMI 37.4
== END 2025-09-03 10:06 | disposition home or self-care (01) ==
LOC: HO.HPHYS 09:03
PROVIDERS: PCP Internal Medicine; Visit Provider Physical Medicine & Rehabilitation
DX: M54.16 Radiculopathy, lumbar region (principal)
CPT/HCPCS: 62323

== ENCOUNTER 2025-09-21 13:29 | Outpatient (AMB) | payer MEDICARE, SELFPAY ==
--- OUTSIDE RECORDS SUMMARY | 2024-06-30 11:00 | XMS_ITS | Encounter Summary ---
Author Organization [employer] Address [address] [place] [address] Care Team Providers Care Haul Cane Brakeman Name Role Phone Cristina Martinez MD Primary Care Provider [phone] Encounter Details Date Type Department Care Team (Late st Contact Info) Description 06/30/2024 12:00 PM EDT Hospital Encounter TH HISTORIC ENCOUNTERS EASTERN CONVERSION ONLY Julianne Alexandra PA [address], [place] Social History Tobacco Use Types Packs/Day Years Used Date Smoking Tobacco: Never Smokeless Tobacco: Never Alcohol Use Standard Drinks/Week Comments No 0 (1 standard drink = 0.6 oz pur e alcohol) Housing Instability Answer Date Recorde d Are you worried that in the next 2 months you may not have stable housing? No 05/14/2025 Food Access & Nutrition Answer Date Rec orded Do you have access to a vari ety of food including fruits and vegetables? Yes 05/14/2025 Access to Healthcare Answer Date Record ed Within the last 3 months, ho w many times did you visit the emergency department for your medical care? 0 05/14/2025 Health Literacy Answer Date Recorded How often do you need to hav e someone help you when you read instructions, pamphlets, or other written material from your doctor or pharmacy? Never 05/14/2025 Caregiver: How often do you need to have someone help you when you read instructions, pamphlets, or other written material from your doctor or pharmacy? Not on file 05/14/2025 Financial Risk Answer Date Recorded How hard is it for you to pa y for the very basics like food, housing, medical care, and air conditioning / heating? Not very hard 05/14/2025 Transportation Answer Date Recorded Has the lack of transportati on kept you from meetings, work, or from getting things needed for daily living? No Has the lack of transportati on kept you from medical appointments or from getting medications? No 05/14/2025 Social Isolation Answer Date Recorded How often do you feel lonely or isolated from th ose around you? Never 05/14/2025 Food Risk Answer Date Recorded Within the past 12 months we worried whether our food would run out before we got money to buy more. Never true 05/14/2025 Within the past 12 months th e food we bought just didn't last and we didn't have money to get more. Never true 05/14/2025 Dependent Care Answer Date Recorded Do you need help finding or paying for care for your loved ones. For example, child caregiver or elderly care for an older adult? No 05/14/2025 Education Answer Date Recorded Do you think completing more education or training, like finishing a GED, going to college, or learning a trade, would be helpful for you? N/A 05/14/2025 Employment and Income Answer Date Recor ded During the last four weeks, have you been actively looking for work? No 05/14/2025 Living Situation Answer Date Recorded What is your living situation? Unrecognized valu e 05/14/2025 Comments No Sex and Gender Information Value Date Recorded Sex Assigned at Female 11/01/2024 12:04 AM EST Legal Sex Female 1:56 PM EST Gender Identity Female 11/01/2024 12:04 AM EST Sexual Orientation Straight 11/01/2024 12 :04 AM EST documented as of this encounter Plan of Treatment Upcoming Encounters Date Type Department Care Team (Late st Contact Info) Description 11/16/2025 1:00 PM EST Office Visit Adult Medicine [address] [id number] Julianne Alexandra PA [address], [place] documented as of this encounter Visit Diagnoses Not on filedocumented in this encounter Care Teams Haul Cane Brakeman Relationship Specialty Start Date End Date Cristina Martinez MD [address], [place] PCP - General 09/30/1990 documented as of this encounter
[2025-09-21 13:34] VITALS: BMI 37.4
--- NOTE | 2025-09-21 13:34 | A.PHYSOV ---
Vital Signs 09/21/25 13:34 Height 5 ft 4 in Weight 218 lb BMI 37.4 Intake Visit Reasons: F/U after injection 09/03/2025 Intake Note: Patient is a 70 year old female here for follow up after L5-S1 KEIRY on 09/03/25. Churn Driller Required: No Allergies naproxen (NAPROXEN) Allergy (Severe, Verified 09/21/25 13:36) NAUSEA & VOMITING prednisone Allergy (Unknown, Verified 09/21/25 13:36) Unknown Sulfa (Sulfonamide Antibiotics) (SULFA (SULFONAMIDE ANTIBIOTICS)) Adverse Reaction (Severe, Verified 09/21/25 13:36) NAUSEA & VOMITING HPI Comments Details: History of Present Illness The patient is a 70 year old female presenting for follow-up of chronic back pain. She reports that her first L5-S1 injection, received in November, provided good relief for about six months. Her second injection at the same level, administered two weeks ago, has not provided the same benefit. She still reports 75% reduction of her pain at this time. Following the most recent injection, she experienced an episode of significant dizziness where her eyes felt like they were going in circles. This sensation persisted for the entire day, and she was advised by a nurse not to leave the facility while still feeling dizzy; the dizziness resolved the following day. She did not have this reaction with her first injection. She has previously consulted with a surgeon who ordered back x-rays and determined that she did not require surgery. She has a history of receiving a knee injection from another provider that only provided one week of relief. Pain Description - Location: The patient reports back pain, which is now a little easier on both sides. - Exacerbating Factors: Pain is worse at night when she gets up. - Impact on Function: The pain limits her activities, as she states she can't do too much. - Response to Treatment: Her first injection provided good relief for about six months, but the second injection two weeks ago has not been as effective. Results - Imaging: Reports prior x-rays of the back reviewed by a surgeon, who concluded she was not a candidate for surgery. [facility] Surgical History Hx of tonsillectomy Social History Household Members: Spouse Alcohol intake: current Alcohol intake frequency: does not drink Patient Tobacco Use Status: Never used Tobacco Current occupational status: disabled Review of Systems Narrative Review of Systems - Neurological: Reports an episode of dizziness and a sensation of her eyes going in circles that lasted for one day after her most recent back injection. - Musculoskeletal: Reports persistent back pain that is worse at night. Physical Exam Exam Exam: Physical Exam Lumbar Spine: Examination of the lumbar spine, there is no visible swelling or deformity. She is tender to left lower lumbar facets. She is otherwise nontender. Full range of motion of the lumbar spine. She has less pain with facet loading. Special Tests: Lhermittes sign was negative Heel Toe walk is normal Left straight leg raise: Negative Right straight leg raise: Negative Special tests Issa test is negative Ganslen's test is negative SI Joint compression test negative Luan test negative Piriformis stretch is negative Lower Extremities: Mild decrease in range of motion particularly in extension of the left knee otherwise full range of motion her ligaments are intact. Calf is soft and nontender. Neuro: Sensation: Intact to lower extremities bilaterally Strength L2 (Psoas): 5/5 on the left and 5/5 on the right. L3 (Quads): 5/5 on the left and 5/5 on the right. L4 (Ant tibialis): 5/5 on the left and 5/5 on the right. L5 (EHL) 5/5 on the left and 5/5 on the right. S1 (Gastroc): 5/5 on the left and 5/5 on the right. DTR L4: (Patellar) Left 1 Right 1 S1: (Achilles) Left 1 Right 1 Babinski Downgoing No pathologic clonus. No involuntary movement. Vital Signs: BMI result Body Mass Index 37.4 Assessment & Plan Assessment & Plan (1) Lumbar radiculopathy: Code(s): M54.16 - Radiculopathy, lumbar region Category: Medical (2) Spinal stenosis, lumbar region with neurogenic claudication: Code(s): M48.062 - Spinal stenosis, lumbar region with neurogenic claudication Category: Medical Plan Pain Management - Analgesia: The patient is dissatisfied with the relief from her second L5-S1 injection and has requested Lidoderm patches. - Affect: She reports being disappointed with the lack of good pain relief. - Adverse Effects: The patient experienced significant dizziness for a full day following her most recent injection. - Activities of Daily Living: Her pain interferes with her ability to perform activities, stating she can't do much. - Aberrant Drug Related Behaviors: The patient expresses a reluctance to take certain unspecified medications and expresses concern over her stepdad's use of pain medication, suggesting she is cautious about potential misuse. Plan Patient was informed and verbally consented to the use of an ambient scribe for clinic note documentation during this visit. 1. Low Back Pain The patient reports ongoing back pain with 75% improvement from her second L5-S1 injection received two weeks ago. She experienced significant dizziness as an adverse reaction to the procedure for the 1st 24 hours but her symptoms have resolved. We may caution her with repeating the injection secondary to that reaction. A prescription for Lidoderm patches will be sent to her pharmacy to trial for analgesia. She was informed that this medication is primarily indicated for postherpetic neuralgia and may not be covered by insurance, with [id number] alternatives available. Follow-up is scheduled for approximately three months to re-evaluate her pain. Further treatment options, including repeating the same injection or attempting a different type, will be considered at that time based on her status. Discussion Notes I discussed with the patient her report that the second L5-S1 injection, received two weeks ago, was not as effective as the first one from 2018. I clarified that it was the same injection and explained that the outcome of each injection can be different. We discussed the unusual adverse reaction of significant dizziness she experienced after the procedure, which lasted for a day. I noted this reaction could be a reason for her not to want to undergo this procedure again. Regarding her request for pain patches, I explained that prescription Lidoderm is only approved for shingles and may not be covered by her insurance, while similar products like Salonpas are available over the counter. Nevertheless, I agreed to send a prescription for the Lidoderm patches for her to try. I set the expectation that pain injections are never going to make her 100% better and are not a permanent solution. We agreed to a follow-up visit in approximately three months to assess her progress and discuss next steps, which may include another injection of the same or a different type. Patient Instructions - I have sent a prescription for Lidoderm patches to your pharmacy for your back pain. - Please be aware that your insurance might not pay for these patches because they are typically used for pain after shingles. If that happens, similar pain patches are available to buy [id number]. - The dizziness you had after your last shot is an unusual reaction, and we can consider this when deciding on future injections. - Remember that pain injections will not make you 100% better and are not a permanent cure. - Please schedule a follow-up appointment in about three months to see how you are doing. Medications: New lidocaine 5% (Lidoderm) leave on most painful area for up to 12 hrs 1 patch topical DAILY 30 ea 2RF M48.062 - Spinal stenosis, lumbar region with neurogenic claudication, M54.16 - Radiculopathy, lumbar region Coding Level of Care Code Est Pt Level 3 (82063) Diagnoses Lumbar radiculopathy M54.16 Spinal stenosis, lumbar region with neurogenic claudication M48.062
--- OUTSIDE RECORDS SUMMARY | 2025-09-21 14:37 | XMS_ITS | Clinical Summary ---
Author Organization [address] Address [address] [place] [phone] Phone Care Team Providers Care Cottrell Operator Name Role Phone Cristina Martinez MD Primary Care Provider [phone] Allergies Active Allergy Reactions Criticality Noted Date Comments Nsaids (Non-Steroidal Anti-Inflammatory Drug) GI intolerance Medium 04/21/2025 Prednisone 05/08/2024 Sulfa (Sulfonamide Antibiotics) 06/25/2011 Chills, lightheaded Medications Ventolin HFA 90 mcg/actuation inhaler INHALE 2 PUFFS BY MOUTH EVERY 4 (FOUR) HOURS IF NEEDED FOR WHEEZING OR SHORTNESS OF BREATH. 18 each 5 Active loratadine (CLARITIN) 10 mg tablet Take 1 tablet (10 mg total) by mouth 1 (one) time each day. 90 tablet 1 5 Active enalapril (VASOTEC) 10 mg tablet Take 1 tablet (10 mg total) by mouth at bedtime. 90 tablet 1 5 Active cholecalciferol (VITAMIN D-3) 50 mcg (2,000 unit) capsule Take 1 capsule (2,000 Units total) by mouth 1 (one) time each day. 90 capsule 1 5 Active fluticasone HFA (FLOVENT HFA) 110 mcg/actuation inhaler Inhale 1 puff by mouth 2 (two) times a day. Rinse mouth with water after use 3 each 1 5 Active hydroCHLOROthia zide (HYDRODIURIL) 25 mg tablet TAKE 1 TABLET BY MOUTH EVERYDAY AT BEDTIME 90 tablet 5 Active metoprolol succinate (TOPROL-XL) 25 mg 24 hr tablet TAKE 1 TABLET BY MOUTH EVERY DAY DO NOT CRUSH OR CHEW 90 tablet 5 Active mupirocin (BACTROBAN) 2 % ointment Apply topically 3 (three) times a day for 10 days. 22 g 5 09/13/20 25 Active Problems Problem Noted Date Diagnosed Date Class 2 obesity 11/03/2024 Irritant contact dermatitis due to cosmetics Vitamin D deficiency 12/07/2022 Assessment & Plan (05/14/2025 11:49 AM EDT): Subclinical hypothyroidism 06/08/2022 Assessment & Plan (05/14/2025 11:49 AM EDT): Obstructive sleep apnea 02/14/2022 Overview (11/08/2024): Patient has mild sleep apnea. I offer CPAP machine but she does not want to use it Osteopenia 02/02/2022 Overview (07/27/2024): 02/18 T score spine +1.1 hip -1.2 FRAX score 6.8% 10 year fracture risk Assessment & Plan (05/14/2025 11:49 AM EDT): COVID-19 09/22/2020 Mild intermittent asthma 12/23/2019 Overview (07/27/2024): Positive methacholine challenge 11/23/19 Assessment & Plan (05/14/2025 11:49 AM EDT): Lumbar spondylosis 08/26/2019 Varicose veins of both lower extremities 019 Non-seasonal allergic rhinitis 07/30/2019 Morbid obesity 12/05/2015 Assessment & Plan (05/14/2025 11:49 AM EDT): Plantar fasciitis 02/13/2012 Atopic dermatitis 11/30/2005 Migraine without aura 11/30/2005 Overview (11/08/2024): Hypertension 11/30/2005 Assessment & Plan (05/14/2025 11:49 AM EDT): Neutropenia 11/30/2005 Overview (07/27/2024): mild chronic Resolved Problems Problem Noted Date Diagnosed Date Resolved Date Lumbosacral spondylosis without myelopathy 02/17/2007 11/12/2024 Encounters Date Type Department Care Team Description 09/03/2025 5:45 PM EST Office Visit Walk-In [facility] [address] [phone] Brandon Abbasi, [employer]ICE [employer]ATION [employer]QU[employer]MENT MECH[employer]IC Rash (Primary Dx) 09/03/2025 Nurse Triage Adult [facility] [address] [phone] Ada Grover [place] 08/12/2025 11:30 AM EST Office Visit Orthopedics [address] [phone] Flaco Francis PA Primary osteoarthritis of left knee (Primary Dx) from Last 3 Months Immunizations Immunization Administration Dates Next Due Influenza Quadravalent, MDCK [...] spondylosis with out myelopathy 02/17/2007 Morbid obesity ([facility] V24, [facility] V28) 12/05/2015 Chronic cough 07/30/2019 Osteopenia 02/02/202202/18 [...] care for your loved ones. For example, childcare center administrator or elderly care for an older adult? [...] 11/01/2024 12 :04 AM EST Obstetrics History Para Term AB IAB SAB Ectopic Multiple Livin g Live Births 4 4 4 4 Date Outcome GA Total Labor Labor/2nd/3rd Weight Sex Type Anes PTL Joanie A1 A5 Name Clin Term Term Term Term Last Filed Vital Signs Vital Sign Reading Time Taken Comments Blood Pressure 136/72 09/03/2025 5:03 PM EST Pulse 90 09/03/2025 5:03 PM EST Temperature 36.1 C (97 F) 09/03/2025 5:03 PM EST Respiratory Rate 16 08/12/2025 11:30 AM EST Oxygen Saturation 98% 09/03/2025 5:03 PM EST Inhaled Oxygen Concentration - - Weight 100 kg (221 lb) 08/12/2025 11:30 AM EST Height 162.6 cm (5' 4 ) 08/12/2025 11:30 AM EST Body Mass Index 37.93 08/12/2025 11:30 AM EST Plan of Treatment Upcoming Encounters Date Type Department Care Team (Late st Contact Info) Description 11/16/2025 1:00 PM EST Office Visit Adult Medicine [address] [phone] Julianne Alexandra PA [address] [place] [address] Health Maintenance Due Date Last Done Comments RSV Immunization Adult Patients (1 - Risk 50-74 years 1-dose series) 2006 Zoster Vaccines (1 of 2) 2006 Cervical Cancer Screening: HPV 11/20/2022 11/20/2017 COVID-19 Vaccine ( season) 2025 07/04/2022, 10/24/2021, 01/09/2021, Additional history exists Influenza Vaccine (#1) 2025 , 06/08/2022, 07/26/2021, Additional history exists Hypertension/CHF/CAD Annual BMP Blood Test 11/09/2025 11/09/2024, 05/08/2024, 05/08/2024 Falls Risk Assessment 05/14/2026 05/14/2025, 024 Medicare Annual Wellness Visit 05/14/2026 05/14/2025 Social Influencers of Health Screening 05/14/2026 05/14/2025 Breast Cancer Screening 02/16/2027 02/17/20 25, 02/04/2024, 02/04/2024, Additional history exists DTaP,Tdap,and Td Vaccines (4 - Td or Tdap) 10/16/2027 10/16/2017, 09/29/2007, 10/31/1997 Colorectal Cancer Screening: Colonoscopy 01/15/2028 01/14/2018 Cholesterol Screening (Lipid Panel) 11/09/2029 11/09/2024, 05/08/2024, 05/08/2024 Osteoporosis Screening (Bone Density Screening) 08/24/2034 08/24/2024, 02/02/2022 Hepatitis C Screening Completed 04/01/2013 Pneumococcal Vaccine: 50+ Years Completed 12/07/2022, 12/06/2021 Depression Screening Completed 05/14/2025, 03/05/20 24 HIB Vaccines Aged Out No longer eligi [...] Procedure Name Priority Date/Time Associated Diagnosis Comments CT ARTHROCENTESIS/ASPIRA TION/INJECTION MAJOR JOINT/BURSA W/O U/S GUIDANCE Routine 08/12/2025 11:30 AM EST Primary osteoarthritis of left knee MG MAMMO DIGITAL SCREENING W CHELE BILAT Routine 02/16/2025 1:55 PM EDT Encounter for screening mammogram for breast cancer COMPREHENSIVE METABOLIC PANEL Routine 11/09/2024 10:45 AM EST Osteopenia, unspecified location Vitamin D deficiency Primary hypertension Subclinical hypothyroidism Lipid screening LIPID PANEL WITH REFLEX TO DIRECT LDL Routine 11/09/2024 10:45 AM EST Osteopenia, unspecified location Vitamin D deficiency Primary hypertension Subclinical hypothyroidism Lipid screening BD BONE DENSITY DXA AXIAL SKELETON Routine 08/24/2024 11:52 AM EST Other specified disorders of bone density and structure, unspecified site DEPRESSION SCREENING Routine 03/05/2024 FALLS RISK ASSESSMENT Routine 03/05/2024 COLONOSCOPY Routine 01/14/2018 HPV Routine 11/20/2017 HEPATITIS C SCREENING Routine 04/01/2013 from Last 3 Months or Most Recently Relevant to Health Maintenance Results * CT ARTHROCENTESIS/ASPIRATION/INJECTION MAJOR JOINT/BURSA W/O U/S GUIDANCE (08/12/2025 11:30 AM EST) Flaco Sow PA - 08/12/2025 11:30 AM EST SHIVA Sherman 08/12/2025 11:51 AM L Inj/Asp: L knee Indications: pain Details: 22 G needle, anterolateral approach Medications: 4 mL lidocaine 1 %; 80 mg methylPREDNISolone acetate 80 mg/mL Informed Consent: Site: Knee Laterality: Left Relevant images/test results available and reviewed: yes Health status cleared: Yes Procedure/treatment, purpose, treatment alternatives, risks/potential complications and benefits explained: yes Risk/complications/benefits details: Risks include but are not limited to: The treatment may not accomplish the desired results. Additionally bleeding, infection, damage to tendon, nerve, cartilage, muscle; thinning or lightening of the skin in the area of injection; flushing or redness of the face, elevated blood pressure or blood sugar, allergic reaction, rash, increased pain Benefits include relief of inflammation and pain Patient questions answered: yes Patient agrees, verbalizes understanding, and wants to proceed: yes Consent given by: Patient Informed consent discussion completed by Physician/MEG with patient: Verbal Pre-procedure timeout performed: yes us Flaco SHANNON IN CLINIC/BEDSIDE ORDERABLES Fin al Result * MG Mammo Digital Screening w Chele bilat (02/16/2025 1:55 PM EDT) Anatomical Region Laterality Modality Breast Bilateral Mammography 02/17/2025 8:24 AM EDT Impressions 02/17/2025 8:28 AM EDT BILATERAL BREASTS: Benign, no evidence of malignancy. Normal interval follow-up is recommended in 12 months. BREAST DENSITY: B - There are scattered areas of fibroglandular density. BI-RADS CATEGORY: 2 - BENIGN RECOMMENDATION: Screening bilateral mammogram is recommended in 1 year. Mammo Location: [facility], [address] [place] [address], [id number], . -------- FINAL REPORT -------- Dictated By: Ifeoma Brandon Dictated Date: 02/17/2025 08:24 ET Assigned Physician: Ifeoma Brandon Reviewed and Electronically Signed By: Ifeoma Brandon Signed Date: 02/17/2025 08:28 ET Workstation ID: [id number] Transcribed By: Self Edit Transcribed Date: 02/17/2025 08:25 ET Narrative 02/17/2025 8:28 AM EDT STUDY: Bilateral screening mammography with tomosynthesis and CAD TECHNIQUE: Bilateral full-field digital screening mammography is obtained and read in conjunction with computer-aided detection. Tomosynthesis as well as 2-D C view imaging were obtained. COMPARISON: Comparison made to multiple prior, most recent February 04, 2024, and most remote July 23, 2015. RIGHT BREAST: Lymph node in the upper-outer quadrant mid/posterior depth is not significantly changed from 2015. No significant masses, suspicious calcifications or other abnormalities are seen. LEFT BREAST: No significant masses, suspicious calcifications or other abnormalities are seen. Procedure Note Ifeoma Brandon MD - 02/17/2025 STUDY: Bilateral screening mammography with tomosynthesis and CAD TECHNIQUE: Bilateral full-field digital screening mammography is obtainedand read in conjunction with computer-aided detection. Tomosynthesis aswell as 2-D C view imaging were obtained. COMPARISON: Comparison made to multiple prior, most recent February 04, 2024,and most remote July 23, 2015. RIGHT BREAST: Lymph node in the upper-outer quadrant mid/posterior depthis not significantly changed from 2015. No significant masses, suspiciouscalcifications or other abnormalities are seen. LEFT BREAST: No significant masses, suspicious calcifications or otherabnormalities are seen. IMPRESSION: BILATERAL BREASTS: Benign, no evidence of malignancy. Normal intervalfollow-up is recommended in 12 months. BREAST DENSITY: B - There are scattered areas of fibroglandular density. BI-RADS CATEGORY: 2 - BENIGN RECOMMENDATION: Screening bilateral mammogram is recommended in 1 year. Mammo Location: [facility], [address] [place] [address], [id number], . -------- FINAL REPORT -------- Dictated By: Ifeoma Brandon Dictated Date: 02/17/2025 08:24 ET Assigned Physician: Ifeoma Brandon Reviewed and Electronically Signed By: Ifeoma Brandon Signed Date: 02/17/2025 08:28 ET Workstation ID: [id number] Transcribed By: Self Edit Transcribed Date: 02/17/2025 08:25 ET us Cristina Martinez MD IM BI PROCEDURES Final Result * Lipid panel with reflex to direct LDL (11/09/2024 10:45 AM EST) Cholesterol 154 0 - 200 mg/dL LAB CHEMISTRY METHOD 11/09/2024 3:59 PM EST [facility] Triglycerides 90 0 - 150 mg/dL LAB CHEMISTRY METHOD 11/09/2024 3:59 PM [facility] HDL 58 >=40 mg/dL LAB CHEMISTRY METHOD 11/09/2024 3:59 PM [facility] LDL Calculated 78 0 - 100 mg/dL LAB CHEMISTRY METHOD 11/09/2024 3:59 PM [facility] VLDL Cholesterol Luis Armando 18 mg/dL LAB CHEMISTRY METHOD 11/09/2024 3:59 PM [facility] Non HDL Chol. (LDL+VLDL) 96 <145 mg/dL LAB CHEMISTRY METHOD 11/09/2024 3:59 PM [facility] Chol/HDL Ratio 2.7 0.0 - 4.4 LAB CHEMISTRY METHOD 11/09/2024 3:59 PM [facility] Blood Venous blood specimen / Unknown Venipuncture / Unknown 11/09/2024 10:45 AM EST 11/09/2024 10:45 AM EST us Julianne SHANNON LAB BLOOD ORDERABLES Final Re sult [facility] [address] [place] [address], * Comprehensive metabolic panel (11/09/2024 10:45 AM EST) Sodium 140 133 - 145 mmol/L LAB CHEMISTRY METHOD 11/09/2024 3:59 PM [facility] Potassium 4.1 3.5 - 5.5 mmol/L LAB CHEMISTRY METHOD 11/09/2024 3:59 PM [facility] Chloride 105 96 - 110 mmol/L LAB CHEMISTRY METHOD 11/09/2024 3:59 PM [facility] CO2 28 21 - 32 mmol/L LAB CHEMISTRY METHOD 11/09/2024 3:59 PM [facility] Anion Gap 7 3 - 11 LAB CHEMISTRY METHOD 11/09/2024 3:59 PM [facility] Glucose 95 70 - 100 mg/dL LAB CHEMISTRY METHOD 11/09/2024 3:59 PM [facility] BUN 16 5 - 25 mg/dL LAB CHEMISTRY METHOD 11/09/2024 3:59 PM [facility] Creatinine 0.88 0.50 - 1.10 mg/dL LAB CHEMISTRY METHOD 11/09/2024 3:59 PM [facility] eGFR 72 >=60 mL/min/1. 73m2 LAB CHEMISTRY METHOD 11/09/2024 3:59 PM [facility] Comment:Calculation based on the Chronic Kidney Disease Epidemiology Collaboration (CKD-EPI) equation refit without adjustment for race. BUN/Creatinine Ratio 18.2 LAB CHEMISTRY METHOD 11/09/2024 3:59 PM [facility] Calcium 9.6 8.5 - 10.5 mg/dL LAB CHEMISTRY METHOD 11/09/2024 3:59 PM [facility] AST (SGOT) 13 10 - 42 unit/L LAB CHEMISTRY METHOD 11/09/2024 3:59 PM [facility] ALT (SGPT) 22 10 - 60 unit/L LAB CHEMISTRY METHOD 11/09/2024 3:59 PM [facility] Alkaline Phosphatase 85 42 - 121 unit/L LAB CHEMISTRY METHOD 11/09/2024 3:59 PM [facility] Total Protein 7.0 6.0 - 8.0 g/dL LAB CHEMISTRY METHOD 11/09/2024 3:59 PM [facility] Albumin 3.8 3.2 - 5.0 g/dL LAB CHEMISTRY METHOD 11/09/2024 3:59 PM [facility] Total Bilirubin 0.6 0.0 - 1.4 mg/dL LAB CHEMISTRY METHOD 11/09/2024 3:59 PM [facility] Blood Venous blood specimen / Unknown Venipuncture / Unknown 11/09/2024 10:45 AM EST 11/09/2024 10:45 AM EST us Julianne SHANNON LAB BLOOD ORDERABLES Final Re sult [place] ([facility]) [facility] [address] [place] [address], [place] [phone] * BD Bone Density DXA Axial Skeleton [...] the T-scores as follows: At or above -1 SD Normal bone density Between -1 and -2.5 SD Osteopenia At or below -2.5 SD Osteoporosis -------- FINAL REPORT -------- Dictated By: Ifeoma Brandon Dictated Date: 08/24/2024 18:21 ET Assigned Physician: Ifeoma Brandon Reviewed and Electronically Signed By: Ifeoma Brandon Signed Date: 08/24/2024 18:24 ET Workstation ID: [id number] Transcribed By: Self Edit Transcribed Date: 08/24/2024 18:21 ET Narrative 08/24/2024 6:24 PM EST STUDY: DUAL ENERGY X-RAY ABSORPTIOMETRY / DXA REASON FOR EXAM: Female, 69 years old Osteopenia, unspecified location TECHNIQUE: Bone Mineral Density (BMD) measurements of the lumbar spine and left hip were obtained using [employer] Discovery W (S/N [id number]). COMPARISON: February 02, 2022 FINDINGS: L1-L4 BMD: 1.223 g/cm2 L1-L4 T score: 1.6. This corresponds to Normal bone density. This represents a 5.1* % increase in bone density compared with prior exam from February 02, 2022. Left femoral neck BMD: 0.762 g/cm2 Left femoral neck T score: -0.8. This corresponds to Normal bone density. Left total [...] lumbar spineand left hip were obtained using [employer] W (S/N [id number]). COMPARISON: February 02, 2022 FINDINGS: L1-L4 BMD: [...] Signed Date: 08/24/2024 18:24 ET Workstation ID: [id number] Transcribed By: Self Edit Transcribed Date: 08/24/2024 18:21 ET Cristina Martinez MD IMG DXA PROCEDURES Final Result * Falls Risk Assessment (03/05/2024) [facility] Falls Risk Assessment Abstracted Result [facility] Provider HEALTH MAINTENANCE Final Result * Depression Screening (03/05/2024) [facility] Depression Screening Abstracted Result [facility] Provider HEALTH MAINTENANCE Final Result * Colonoscopy (01/14/2018) [facility] Colonoscopy No Interpretation , Abstracted Anatomical Region Laterality Modality Other Result [facility] Provider HEALTH MAINTENANCE Final Result * Cervical Cancer Screening: HPV (11/20/2017) [facility] Cervical Cancer Screening: HPV Negative, Abstracted Result [facility] Provider HEALTH MAINTENANCE Final Result * Hepatitis C Screening (04/01/2013) [facility] Hepatitis C Screening Abstracted Result [facility] Provider HEALTH MAINTENANCE Final Result from Last 3 Months or Most Recently Relevant to Health Maintenance Insurance MEDICARE Advance Directives Documents on File Type Date Recorded 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
--- OUTSIDE RECORDS SUMMARY | 2025-09-21 14:37 | XMS_ITS | Patient Health Record ---
Author Organization [facility] [place] [address] Care Team Providers Care Supervisor Cigar Making Machine Name Role Phone Cristina Martinez Primary Care [...] Problem Status W/U Status Risk Notes Problem Morbid obesity (189262063) Morbid obesity (E66.01) Active confirmed Problem Vitamin D deficiency (79016482) Vitamin D deficiency (E55.9) Active confirmed Problem Sleep apnea (67033030) Sleep apnea (G47.30) Active confirmed Problem Osteopenia (409391682) Osteopenia (M85.80) Active confirmed Problem Plantar fasciitis (483162438) Plantar fasciitis (M72.2) Inactive confirmed Problem Obese class II (354444766907506) BMI 36.0-36.9,adult (Z68.36) Active confirmed Problem Migraine without aura, not refractory (502359623) Migraine without aura and without status migrainosus, not intractable (G43.009) Inactive confirmed Problem Hypothyroidism (32210409) Other specified hypothyroidism (E03.8) Active confirmed Problem Pain co-occurrent and due to varicose veins of bilateral legs (7307454458198615 0) Varicose veins of bilateral lower extremities with pain (I83.813) Active confirmed Problem Wheeze (00393562) Wheeze (R06.2) Inactive confir med Problem Lumbosacral spondylosis without myelopathy (24474645) Osteoarthritis of spine with radiculopathy, lumbar region (M47.26) Active confirmed Problem Primary hypertension (17566284) Primary hypertension (I10) Active confirmed Problem Adult health examination (608270776) Adult general medical exam (Z00.00) Active confirmed Problem Atopic dermatitis (65376768) Atopic dermatitis, unspecified type (L20.9) Inactive confirmed Problem Mild intermittent asthma (874788911) Mild intermittent asthma, unspecified whether complicated (J45.20) Active confirmed Problem Neutropenia (685976328) Neutropenia, unspecified type (D70.9) Inactive confirmed Problem Allergic rhinitis (81103990) Non-seasonal allergic rhinitis, unspecified trigger (J30.89) Active confirmed Plan Of Treatment No Information Insurance Providers Payer Name Payer Address Payer Phone Subscriber Number Group Number Insured Name Patient Relationship to Insured Coverage Start Date Coverage End Date [id number] [address] [facility] [address] [place] [address] [id number] Colon, Melodie Self - patient is the insured 2 3 [employer] [place] ([id number]) [address] [facility] [address] [place] [address] [id number] Colon, Melodie Self - patient is the insured 2 2
== END 2025-09-21 13:57 | disposition home or self-care (01) ==
LOC: HO.HPHYS 13:29
PROVIDERS: PCP Internal Medicine; Visit Provider Physician Assistant
DX: M54.16 Radiculopathy, lumbar region (principal); M48.062 Spinal stenosis, lumbar region with neurogenic claudication
CPT/HCPCS: 99213

== ENCOUNTER → 2025-09-21 13:29 | Outpatient (BNVA) | payer MEDICARE, SELFPAY | PROVIDERS: PCP Internal Medicine; Visit Provider Physician Assistant | DX: M54.16 Radiculopathy, lumbar region (principal); M48.062 Spinal stenosis, lumbar region with neurogenic claudication | CPT/HCPCS: 99212 ==